=== PATIENT | female | born 1930 | race Caucasian/White ===

== ENCOUNTER → 2016-09-03 | Outpatient (CLI) | payer OTHER ==
--- NOTE | 2016-09-03 17:16 | US ---
Ultrasound and Venous Duplex Doppler Study of Left Lower Extremity Clinical History: 85-year-old female with left leg swelling and an elevated D-dimer. Rule out DVT. Th e patient has a prior history of breast cancer, and has also had prior left leg varicose vein sclerot herapy and vein stripping. Technique: A high frequency transducer was used for imaging and Doppler study of the veins of the le ft lower extremity. Pulsed Doppler and color Doppler were utilized, along with various maneuvers to assess flow in the veins. Cursory evaluation of the contralateral common femoral vein was obtained f or comparison purposes. Comparison Study: Left leg venous Doppler ultrasound, dated November 05, 2011 which was negative. Findings: With the exception of deep venous thrombosis involving the mid-calf portions of the peronea l veins, the remaining deep veins of the left lower extremity are normally compressible between the g roin and the upper calf, and have normal Doppler waveforms, with no other sonographic evidence of arianna p venous thrombosis. The greater saphenous vein is surgically absent. There is patency of the visuali zed short saphenous vein. The popliteal fossa is unremarkable. Impression: Deep venous thrombosis involving segments of the mid-calf portions of the left peroneal v eins. Results were called to Dr. Jessica Landeros. A test result has been communicated to a licensed care provider and documented in the [facility] Result system on 09/03/2016 16:59, Message ID [id number].
== END ==
LOC: FIMAGING 15:55
PROVIDERS: ATTEND Internal Medicine Hematology & Oncology
DX: I82.4Z2 Acute embolism and thrombosis of unspecified deep veins of left distal lower extremity (principal); Z85.3 Personal history of malignant neoplasm of breast; R79.9 Abnormal finding of blood chemistry, unspecified; Z86.718 Personal history of other venous thrombosis and embolism
CPT/HCPCS: 82607-90; 85240-90; 85245-90; 85246-90; 86705-90

== ENCOUNTER → 2016-09-23 | Outpatient (CLI) | payer OTHER | LOC: BRMIMAGING 08:56 | PROVIDERS: ATTEND Internal Medicine Hematology & Oncology | DX: R63.8 Other symptoms and signs concerning food and fluid intake (principal) | CPT/HCPCS: 76700-PO ==

== ENCOUNTER → 2016-10-12 | Outpatient (CLI) | payer OTHER | LOC: CIMAGING 12:22 | PROVIDERS: ATTEND Internal Medicine Hematology & Oncology | DX: M12.872 Other specific arthropathies, not elsewhere classified, left ankle and foot (principal); M25.572 Pain in left ankle and joints of left foot; M79.89 Other specified soft tissue disorders | CPT/HCPCS: 73610-PO; 73630-PO ==

== ENCOUNTER → 2017-05-31 | Outpatient (CLI) | payer OTHER | LOC: BHFA 15:30 | PROVIDERS: ATTEND Internal Medicine Cardiovascular Disease | DX: R00.2 Palpitations (principal); I25.10 Atherosclerotic heart disease of native coronary artery without angina pectoris ==

== ENCOUNTER → 2017-08-26 | Outpatient (CLI) | payer OTHER | LOC: BHFA 08:30 | PROVIDERS: ATTEND Internal Medicine Cardiovascular Disease | DX: I25.10 Atherosclerotic heart disease of native coronary artery without angina pectoris (principal); R06.00 Dyspnea, unspecified; R74.8 Abnormal levels of other serum enzymes | CPT/HCPCS: 78452; 93017; 93306; A9500; J2785 ==

== ENCOUNTER 2017-09-28 10:56 | Outpatient (CLI) | payer OTHER ==
[2017-09-28] MEDS ORDERED: ACETAMINOPHEN 325 MG TAB PO ONE (11:45)
[2017-09-28] MEDS ORDERED: diphenhydrAMINE 25 MG CAP PO ONE (11:45)
== END 2017-09-28 15:00 | disposition home or self-care (01) ==
LOC: FOBOP 10:56
PROVIDERS: ATTEND Internal Medicine Hematology & Oncology
PROC: 30233N1 Transfusion of Nonautologous Red Blood Cells into Peripheral Vein, Percutaneous Approach (ICD-10-PCS; principal; 2017-09-28)
DX: D46.9 Myelodysplastic syndrome, unspecified (principal)
CPT/HCPCS: 36430; P9016

== ENCOUNTER → 2017-10-03 | Outpatient (CLI) | payer OTHER | LOC: CIMAGING 08:00 | PROVIDERS: ATTEND Internal Medicine Pulmonary Disease | DX: R91.1 Solitary pulmonary nodule (principal); J47.9 Bronchiectasis, uncomplicated; R92.8 Other abnormal and inconclusive findings on diagnostic imaging of breast | CPT/HCPCS: 71250-PO ==

== ENCOUNTER → 2018-03-16 | Outpatient (CLI) | payer OTHER | LOC: CIMAGING 07:10 | PROVIDERS: ATTEND Internal Medicine | DX: R11.0 Nausea (principal); R63.4 Abnormal weight loss | CPT/HCPCS: 76705-PO ==

== ENCOUNTER 2018-05-10 10:36 | Outpatient (CLI) | payer OTHER ==
[2018-05-10] MEDS ORDERED: diphenhydrAMINE 25 MG CAP PO ONE (12:30)
[2018-05-10] MEDS ORDERED: ACETAMINOPHEN 325 MG TAB PO ONE (12:30)
== END 2018-05-10 20:32 | disposition home or self-care (01) ==
LOC: FOBOP 10:36
PROVIDERS: ATTEND Internal Medicine Hematology & Oncology
PROC: 30233N1 Transfusion of Nonautologous Red Blood Cells into Peripheral Vein, Percutaneous Approach (ICD-10-PCS; principal; 2018-05-10)
DX: D46.9 Myelodysplastic syndrome, unspecified (principal)
CPT/HCPCS: 36430; P9016

== ENCOUNTER 2018-06-01 11:00 | Outpatient (CLI) | payer OTHER ==
[2018-06-01] MEDS ORDERED: ACETAMINOPHEN 325 MG TAB PO ONE (12:00)
[2018-06-01] MEDS ORDERED: FUROSEMIDE 20 MG/2 ML VIAL IV ONE (12:00)
[2018-06-01] MEDS ORDERED: diphenhydrAMINE 25 MG CAP PO ONE (12:00)
== END 2018-06-01 18:29 | disposition home or self-care (01) ==
LOC: FOBOP 11:00
PROVIDERS: ATTEND Internal Medicine Hematology & Oncology
PROC: 30233N1 Transfusion of Nonautologous Red Blood Cells into Peripheral Vein, Percutaneous Approach (ICD-10-PCS; principal; 2018-06-01)
DX: D46.9 Myelodysplastic syndrome, unspecified (principal); D72.819 Decreased white blood cell count, unspecified; J47.9 Bronchiectasis, uncomplicated; K76.0 Fatty (change of) liver, not elsewhere classified; I10 Essential (primary) hypertension; M10.9 Gout, unspecified; E03.9 Hypothyroidism, unspecified; I44.7 Left bundle-branch block, unspecified; M19.90 Unspecified osteoarthritis, unspecified site; I49.3 Ventricular premature depolarization; Z86.718 Personal history of other venous thrombosis and embolism
CPT/HCPCS: 36430; J1940; P9016

== ENCOUNTER 2018-06-15 08:26 | Inpatient (IN) | payer OTHER ==
[2018-06-15] MEDS ORDERED: diphenhydrAMINE 25 MG CAP PO ONE (08:45)
[2018-06-15] MEDS ORDERED: ACETAMINOPHEN 325 MG TAB PO ONE (08:45)
[2018-06-15] MEDS ORDERED: ALTEPLASE 2 MG VIAL IVP PRN (14:19)
[2018-06-15] MEDS ORDERED: ACETAMINOPHEN 325 MG TAB PO PRN (15:55)
[2018-06-15] MEDS ORDERED: diphenhydrAMINE 25 MG CAP PO PRN (15:55)
[2018-06-15] MEDS ORDERED: FUROSEMIDE 20 MG TAB PO PRN (17:18)
[2018-06-15] MEDS ORDERED: ALBUTEROL 3 ML DEYVIAL IH PRN (17:18)
--- NOTE | 2018-06-15 17:32 | PDGENHP ---
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 She was in the outpatient transfusion unit today for Hg 3.8 scheduled for 2 units rbcs, but they could not get iv access. She came to the hospital, had a PICC line placed, and is now in on observatoin status for the transfusions. No sob, chest pain or angina, DRAKE, stroke like sxs, lightheadedness, nausea or abd/gi sxs. No bleeding. She does have some fatigue. 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 I have reviewed the list and ordered appropriate medicines. PHYSICAL EXAMINATION: Vital Signs: Stable without fever Examination: General: alert, oriented, good mentation, relaxed Skin: warm, dry, notably pale, no rash or lesions and no signs of bleeding or bruising HEENT: normal Neck: no mass or jvd Resps: relaxed Lungs: clear breath sounds Heart: regular, no murmur Abdomen: soft, nondistended, nontender, +BS, no mass Upper Extremities: normal Lower Extremities: no edema, warm Neurologic: normal speech/language, normal inspector salvage, no focal weakness IV site: looks normal LABORATORY DATA: CBC done yesterday from the clinic had a hemoglobin 3.8, hematocrit 12, MCV 114 , normal platelets, neutropenia with 190 neutrophils 1780 white blood cells reticulocyte count absolute 0.03 (during the month of March through May she was running hemoglobins of 5-6 and getting transfusions for that.) Chemistry yesterday showed normal electrolytes and renal function, bilirubin 3.2 with normal transaminases and LDH ASSESSMENT: * severe anemia in a patient with transfusion-dependent myelodysplastic syndrome * neutropenia with 190 white blood cells without fever * chronic heart disease with coronary stenoses and mitral regurgitation, currently stable with no symptoms of heart failure or angina or arrhythmia * COPD chronic and stable without dyspnea PLANS: * PICC catheter has been placed and will plan on leaving that in place * Transfusion 2 units of red blood cells ordered by Dr. Landeros today * Pre treat with Tylenol Benadryl * Neutropenic precautions * Continue her usual home medicines * Should be able to discharge tonight after transfusions are completed if they are stable and without complication * She has an appointment in Hematology Clinic with Dr. Landeros tomorrow I have reviewed the patient's past medical records as part of this assessment, including past Clinic and Hospital medical records and recent laboratory data
--- NOTE | 2018-06-15 18:31 | PDDCSUM ---
Discharge Summary Discharge Summary: DISCHARGE DIAGNOSES: * severe anemia * transfusion-dependent myelodysplastic syndrome PROCEDURES: Transfusion of 2 units packed red blood cells Placement of PICC catheter HOSPITAL COURSE SUMMARY: This patient who has transfusion-dependent myelodysplastic syndrome had blood tests yesterday showing hemoglobin 3.8. She having minimal symptomatology other than fatigue. She comes in after the nurses at the outpatient transfusions and will unable to gain IV access. Here vital signs were stable and other than fatigue she was asymptomatic. We placed a PICC catheter which was without complication and is functioning well. Blood was sent for cross match and she has been transfused 2 units packed red blood cells. There are no significant complications although she had some minor symptoms during her 2nd unit of transfusion which led to a slowing the infusion rate down. There were no further issues with that unit of blood transfusion and overall she tolerated the transfusions well with no evidence of volume overload, fever, or other major issues. At this time the patient is is feeling better in terms of energy is up walking the hallway eating well. No evidence of any bleeding. No evidence of any other acute illnesses. Initially this patient was made inpatient due to feeling that she was extremely high risk with hemoglobin of 3 with high risk of complications and that we would want to observe her particularly when she started having some side effects at onset of the 2nd unit of blood transfusion. However the patient has recovered nicely and is notably better able to ambulate after the transfusion and we did not have to stop the 2nd unit. Therefore at this point she is recovered to stability quickly than expected and is felt ready for discharge. Has an appointment in hematology clinic today. PENDING TEST RESULTS: None MEDICATION CHANGES: None FOLLOW-UP PLAN: In clinic with Dr. Landeros later today
[2018-06-15] MEDS ORDERED: ONDANSETRON DISINTEGRATING 4 MG TAB PO PRN (21:05)
[2018-06-16] MEDS ORDERED: LEVOTHYROXINE 88 MCG TAB PO SCH (06:00)
[2018-06-16] MEDS ORDERED: Herbals/Supplements -Info Only PO SCH (09:00)
[2018-06-16] MEDS ORDERED: VERAPAMIL ER 120 MG TAB PO SCH (09:00)
[2018-06-16] MEDS ORDERED: OMEGA-3 FATTY ACIDS 1,000 MG CAP PO SCH (09:00)
--- NOTE | 2018-06-16 09:28 | PDIAF ---
- Diagnosis Diagnosis: Transfusion dependent anemia, and myelo dysplastic syndrome - Medication Management Discharge Medications: electronically signed and located in the Home Medication List. PICC Care - Routine: Yes (This is a new PICC line for this patient and is to remain in place for use for transfusions, education regarding PICC care) - Orders Services needed: Home Care, Registered Nurse Home Care Face to Face: I certify that this patient was under my care and that I had the required [id number] encounter meeting the encounter requirements on the discharge day. My findings support the fact that the patient is homebound as defined in Home Care Face to Face Continued: CMS Chapter 7 Medicare Benefits Manual 30.1.1 , The condition of the patient is such that there exists a normal inability to leave home and consequently, leaving home would require a considerable and taxing effort. Diet Recommendation: no restrictions on diet Diet Texture: Regular Texture Diet Additional Instructions: Follow-up in Hematology Clinic tomorrow morning as planned - Follow Up Care Current Providers and Referrals: Patient,NotPresent [Unknown] -
--- NOTE | 2018-06-16 09:38 | ASMTLACE ---
LACE Length of stay for Answers: Less than 1 day current admission Acuity / Level of Answers: Yes Care: Did the patient have an inpatient admission? Comorbidities - select Answers: Any tumor (including all that apply lymphoma or leukemia) Chronic pulmonary disease Coronary Artery Disease Other Notes: HTN; DVT # of Emergency department Answers: 0 visits in the last 6 months Score: 10 Date Signed: 06/16/2018 09:37 AM Electronically Signed By:Leonila Moss RN
--- NOTE | 2018-06-16 09:46 | ASMTCMCOM ---
CM Note CM Note Notes: Patient chart reviewed. PICC placed as she has poor access. 87 year old female with anemia and MDS admitted for PICC and transfusion. I spoke with her. She is alert and oriented. She is awaiting discharge as she has a 10 am appointment at [facility], I have placed home infusion referrals in [facility] for PICC care. Notified Jessica at [facility]. Will likely need Home Health RN to provide dressing changes per patient she goes to infusion center every other week. CM available should other needs arise. Plan: Dc to home with PICC, Home Infusion with nursing care to provide picc care, Date Signed: 06/16/2018 09:44 AM Electronically Signed By:Leonila Moss RN
[2018-06-16 09:49] VITALS: BP 136/71
--- NOTE | 2018-06-18 09:24 | ASDISCHSUM ---
Discharge Information Plan Status: Medically Cleared to Leave: Discharge Date:06/16/2018 10:46 AM D/C Disposition: ADT D/C Disposition:Home, Routine, Self-Care Projected Discharge Date:06/16/2018 11:00 AM Transportation at D/C: Discharge Delay Reason: Follow-Up Date:06/16/2018 11:00 AM Discharge Slot: Final Diagnosis: Placement Information Referral Type:*Home Health Care Services Referral ID:[id number] Provider Name:[facility] ([facility]) Address 1:[address] Address 2: City:[place] Selection [place]: State:[place] Referral Type:Home Infusion Referral ID:[id number] Provider Name:[facility] Address 1:[address] Address 2: City:[place] Selection Factors: State:[place] Patient Contact Information Contact Name:MARILIA Relationship: Address:[address] Work Phone: City:[place] Alternate Phone: [facility]/Zip Code:[place] [address] Email: Financial Information Financial Class:Medicare Primary Plan Desc:MEDICARE INPATIENT Primary Plan Number:[id number] Secondary Plan Desc:Xanofi Secondary Plan Number:[id number] Assessment Information LACE LACE Length of stay for Answers: Less than 1 day current admission Acuity / Level of Answers: Yes Care: Did the patient have an inpatient admission? Comorbidities - select Answers: Any tumor (including all that apply lymphoma or leukemia) Chronic pulmonary disease Coronary Artery Disease Other Notes: HTN; DVT # of Emergency department Answers: 0 visits in the last 6 months Score: 10 Date Signed: 06/16/2018 09:37 AM Electronically Signed By:Leonila Moss RN [facility] CM Progress Note CM Note CM Note Notes: Patient chart reviewed. PICC placed as she has poor access. 87 year old female with anemia and MDS admitted for PICC and transfusion. I spoke with her. She is alert and oriented. She is awaiting discharge as she has a 10 am appointment at [facility], I have placed home infusion referrals in [facility] for PICC care. Notified Jessica at [facility]. Will likely need Home Health RN to provide dressing changes per patient she goes to infusion center every other week. CM available should other needs arise. Plan: Dc to home with PICC, Home Infusion with nursing care to provide picc care, Date Signed: 06/16/2018 09:44 AM Electronically Signed By:Leonila Moss RN Intervention Information Intervention Type:*Incorrect Registration Date of Service:06/15/2018 02:17 PM Patient Type:Observation Staff Member:NICOLE Lopez, Beatriz Hours: Discipline: Severity: Comment:
== END 2018-06-16 10:46 | disposition home or self-care (01) | DRG 812 ==
LOC: F1NOP 08:26 → EDSTATUS 08:26 → F1N 12:49 → OBSVTOIN 13:31 → F1N 13:37
PROVIDERS: ADMIT Family Medicine; ATTEND Family Medicine
PROC: 02H633Z Insertion of Infusion Device into Right Atrium, Percutaneous Approach (ICD-10-PCS; principal; 2018-06-15)
PROC: 30233N1 Transfusion of Nonautologous Red Blood Cells into Peripheral Vein, Percutaneous Approach (ICD-10-PCS; 2018-06-15)
DX: D46.21 Refractory anemia with excess of blasts 1 (principal); R58 Hemorrhage, not elsewhere classified; J44.9 Chronic obstructive pulmonary disease, unspecified; I25.10 Atherosclerotic heart disease of native coronary artery without angina pectoris; I34.0 Nonrheumatic mitral (valve) insufficiency; M10.9 Gout, unspecified; I10 Essential (primary) hypertension; E03.9 Hypothyroidism, unspecified; Z86.718 Personal history of other venous thrombosis and embolism; Z85.3 Personal history of malignant neoplasm of breast
CPT/HCPCS: 99001-90; C1751; P9016

== ENCOUNTER → 2018-07-01 | Outpatient (CLI) | payer OTHER ==
[~2018-07-01] MED LIST: ACETAMINOPHEN 325 MG TAB PO ONE; diphenhydrAMINE 25 MG CAP PO ONE
[2018-07-01 19:49] VITALS: BP 149/64
== END | disposition home or self-care (01) ==
LOC: F1NOP 09:27
PROVIDERS: ATTEND Internal Medicine Hematology & Oncology
PROC: 30233N1 Transfusion of Nonautologous Red Blood Cells into Peripheral Vein, Percutaneous Approach (ICD-10-PCS; principal; 2018-07-01)
DX: D46.9 Myelodysplastic syndrome, unspecified (principal)
CPT/HCPCS: 36430; J1642; P9016

== ENCOUNTER 2018-07-12 09:43 | Outpatient (CLI) | payer OTHER ==
[2018-07-12] MEDS ORDERED: ACETAMINOPHEN 325 MG TAB PO ONE (10:30)
[2018-07-12] MEDS ORDERED: diphenhydrAMINE 25 MG CAP PO ONE (10:30)
[2018-07-12 14:52] VITALS: BP 137/71
== END 2018-07-12 15:00 | disposition home or self-care (01) ==
LOC: F1NOP 09:43
PROVIDERS: ATTEND Internal Medicine Hematology & Oncology
PROC: 30233N1 Transfusion of Nonautologous Red Blood Cells into Peripheral Vein, Percutaneous Approach (ICD-10-PCS; principal; 2018-07-12)
DX: D46.9 Myelodysplastic syndrome, unspecified (principal)
CPT/HCPCS: 36430; J1642; P9016

== ENCOUNTER 2018-08-04 09:18 | Outpatient (CLI) | payer OTHER ==
[2018-08-04] MEDS ORDERED: ACETAMINOPHEN 325 MG TAB PO ONE (09:45)
[2018-08-04] MEDS ORDERED: diphenhydrAMINE 25 MG CAP PO ONE (09:45)
[2018-08-04 17:21] VITALS: BP 124/55
== END 2018-08-04 17:20 | disposition home health service (06) ==
LOC: F1NOP 09:18
PROVIDERS: ATTEND Internal Medicine Hematology & Oncology
PROC: 30263N1 (ICD-10-PCS; principal; 2018-08-04)
DX: D46.9 Myelodysplastic syndrome, unspecified (principal)
CPT/HCPCS: P9016 ×4

== ENCOUNTER 2018-08-05 11:30 | Emergency (ER) | payer OTHER ==
[2018-08-05] MEDS ORDERED: NS 500 ML IV ONE (13:09)
--- NOTE | 2018-08-05 13:12 | EDPHY ---
H & P Time Seen by Provider: 08/05/18 12:15 HPI/ROS: CHIEF COMPLAINT: Rectal pain HISTORY OF PRESENT ILLNESS: The patient is an 87-year-old female with severe myelodysplastic syndrome followed by Dr. Rod who presents to the emergency department with rectal pain. Patient states that she was having significant constipation last week. She saw her physician who treated her with Colace as well as"smooth moved." After taking this medication she had a large bowel movement on . She states the constipated stool ripped her rectum. She reports stabbing rectal pain. It is worsening. Yesterday she reports having a fever. She came to the hospital to receive 2 units of blood and she was noted to have a temperature 101.2 degrees. She was sent to the emergency department for further evaluation. REVIEW OF SYSTEMS: 10 systems were reveiwed and are negative with the exception of the elements mentioned in the history of present illness. Past Medical/Surgical History: Includes myelodysplastic disorder, ovarian cyst, cardiac arrest, breast cancer, bronchiectasis Past surgical history: Includes Hysterectomy, lumpectomy, port Social history: Patient is . She does not smoke Smoking Status: Never smoked Physical Exam: 36.9, 141/53, 97, 18, 96% on room air GENERAL: No acute distress, alert. HEENT: Eyes normal to inspection, normal pharynx, no signs of dehydration. NECK: Normal, supple. RESPIRATORY: Clear to auscultation bilaterally, no rales, rhonchi or wheezing. CVS: Regular rate and rhythm, no rubs, murmurs, or gallops. ABDOMEN: Soft, mild suprapubic tenderness palpation, nondistended, no organomegaly. Rectal: Patient refuses rectal exam. BACK: Normal to inspection, no CVA tenderness. SKIN: Normal color, no rash, warm, dry. No pallor. EXTREMITIES: No pedal edema, no calf tenderness, no Homans sign or cords, no joint swelling. NEURO/PSYCH: Alert and oriented, normal mood and affect, normal motor sensory exam. Constitutional: Initial Vital Signs Temperature (C) 36.9 C 08/05/18 11:35 Heart Rate 97 08/05/18 11:35 Respiratory Rate 18 08/05/18 11:35 Blood Pressure 141/53 H 08/05/18 11:35 O2 Sat (%) 96 08/05/18 11:35 O2 Delivery Mode Room Air Allergies/Adverse Reactions: amoxicillin [From Augmentin] Allergy (Verified 09/28/17 11:26) clavulanic acid [From Augmentin] Allergy (Verified 09/28/17 11:26) doxycycline Allergy (Verified 03/28/18 11:32) epinephrine Allergy (Verified 09/28/17 11:27) esomeprazole [From Nexium] Allergy (Verified 09/28/17 11:27) Iodine and Iodide Containing Produc Allergy (Verified 09/28/17 11:27) rofecoxib [From Vioxx] Allergy (Verified 03/28/18 11:32) doxycycline Allergy (Uncoded 03/28/18 11:32) Home Medications: Medication Instructions Recorded Acetaminophen [Tylenol 325mg (*)] 325 mg PO DAILY PRN 06/15/18 Albuterol [Proventil Neb] 3 ml IH QID PRN 06/15/18 Furosemide [Lasix 20 MG (*)] 20 mg PO DAILY PRN 06/15/18 Herbals/Supplements -Info Only 1 ea PO DAILY 06/15/18 Levothyroxine [Synthroid 88 mcg 88 mcg PO DAILY06 06/15/18 (*)] Bang[place]-3 Fatty Acids [Fish Oil 1000 1,000 mg PO DAILY 06/15/18 mg (*)] Verapamil ER [Calan SR/ER 120MG 120 mg PO DAILY 06/15/18 (*)] Ciprofloxacin [Cipro] 500 mg PO BID #14 tab 08/05/18 Docusate Sodium [Colace 100 MG (*)] 100 mg PO BID PRN 7 Days cap 08/05/18 Venclexta 08/05/18 metroNIDAZOLE [Flagyl 500 mg (*)] 500 mg PO BID 7 Days tab 08/05/18 Medical Decision Making - Diagnostics Imaging Results: Imaging Impressions Pelvis CT 08/05/18 13:09 IMPRESSION: 1. Limited study with nonspecific soft tissue fullness in the perineum and perianal region which is incompletely characterized without IV contrast. Differential considerations include altered anatomy such as rectal prolapse/ intussusception or perirectal phlegmon without loculated fluid to suggest abscess. Rectal carcinoma cannot be radiographically excluded. Ultrasound or MRI of the pelvis may be useful for further evaluation as clinically warranted. 2. 1.0 cm sclerotic lesion in the left ischium may represent enostosis, however sclerotic osseous metastasis cannot be excluded with the patient with breast cancer. Correlation with prior imaging is recommended. No evidence of pelvic fracture. Dr. Gillespie was notified of these findings by telephone at 2:45 PM on 08/05/2018 ED Course/Re-evaluation: In the emergency department I discussed the case with Dr. Rod. He states the patient did not want to come to the emergency department because she did not want physical exam. He recommended imaging. I discussed this with the patient. I reviewed her laboratory studies from yesterday. Her white count was low at 0.72. The patient's ANC was 0.14. Patient's chemistry panel was unremarkable except for slightly low sodium 133. Patient states she has an allergy to contrast dye. This causes a significant reaction. She does not want contrast. CT without contrast as well as laboratory studies were ordered. Due the patient's temperature yesterday and leukopenia blood cultures and lactic acid were obtained. The patient's white count is 1.18. Patient's hematocrit is 24. Of note, the patient states she was transfused yesterday. Patient's INR is 1.4. The patient 's lactic acid is 0.7. Chemistry is notable for low sodium 134. UA is negative. Flu swab is negative. Awaiting CT. On recheck the patient was stable. CT: Please refer the dictated report. There is some fullness in the rectal area but no fluid collection or large mass. I discussed the result with the patient. I answered all her questions. Patient was given a prescription of Colace to soften her stool. Patient will take a Sitz bath multiple times daily. She was given Percocet for pain. Because of the fullness surrounding the rectum and the pain and the fact that the CT scan did not have IV contrast, the patient was started on antibiotics. The patient was given ciprofloxacin and Flagyl. The 1st dose was given in the emergency department. Patient was given warnings prior to leaving. She will return with worsening symptoms. Differential Diagnosis: My differential includes but is not limited to rectal abscess, rectal fissure, external hemorrhoid, thrombosed hemorrhoid, mass, malignancy, perforation, bacteremia, sepsis - Data Points Laboratory Results: Laboratory Results 08/05/18 13:25 08/05/18 13:25 01/12/1708/05/18 08/05/18 13:25 13:25 13:25 WBC RBC Hgb Hct MCV MCH MCHC RDW Plt Count MPV Neut % (Auto) Lymph % (Auto) [place] % (Auto) Eos % (Auto) Baso % (Auto) Nucleat RBC Rel Count Absolute Neuts (auto) Absolute Lymphs (auto) Absolute Monos (auto) Absolute Eos (auto) Absolute Basos (auto) Absolute Nucleated RBC Immature Gran % Seg Neutrophils % Band Neutrophils % Lymphocytes % Monocytes % Eosinophils % Basophils % Metamyelocytes % Myelocytes % Promyelocytes % Blast Cells % Immature Gran # Absolute Seg Neuts Absolute Band Neuts Absolute Lymphocytes Absolute Monocytes Absolute Eosinophils Absolute Basophils Absolute Metamyelocyte Absolute Myelocytes Absolute Promyelocytes Absolute Plasma Cells Atypical Lymphocytes Absolute Blast Cells Plasma Cells % Smudge Cells Platelet Estimate Large Platelets Giant Platelets PT 17.3 SEC H SEC (12.0-15.0) INR 1.40 H (0.83-1.16) APTT 35.3 SEC SEC (23.0-38.0) VBG Lactic Acid Sodium 134 mEq/L L mEq/L (135-145) Potassium 4.2 mEq/L mEq/L (3.5-5.2) Chloride 104 mEq/L mEq/L (97-110) Carbon Dioxide 24 mEq/l mEq/l (22-31) Anion Gap 6 mEq/L mEq/L (6-14) BUN 17 mg/dL mg/dL (7-23) Creatinine 0.6 mg/dL mg/dL (0.6-1.0) Estimated GFR > 60 Glucose 86 mg/dL mg/dL (70-100) Calcium 8.0 mg/dL L mg/dL (8.5-10.4) Urine Color Urine Appearance Urine pH Ur Specific [place] Urine Protein Urine Ketones Urine Blood Urine Nitrate Urine Bilirubin Urine Urobilinogen Ur Leukocyte Esterase Urine Glucose Nasal Influenza A PCR NEGATIVE FOR FLU A (NEGATIVE) Nasal Influenza B PCR NEGATIVE FOR FLU B (NEGATIVE) 08/05/18 08/05/18 08/05/18 13:25 13:20 12:20 WBC 1.18 10^3/uL L 10^3/uL (3.80-9.50) RBC 2.61 10^6/uL L 10^6/uL (4.18-5.33) Hgb 8.1 g/dL L g/dL (12.6-16.3) Hct 24.0 % L % (38.0-47.0) MCV 92.0 fL fL (81.5-99.8) MCH 31.0 pg pg (27.9-34.1) MCHC 33.8 g/dL g/dL (32.4-36.7) RDW 23.2 % H % (11.5-15.2) Plt Count 707 10^3/uL H 10^3/uL (150-400) MPV 11.3 fL fL (8.7-11.7) Neut % (Auto) 11.0 % L % (39.3-74.2) Lymph % (Auto) 83.1 % H % (15.0-45.0) [place] % (Auto) 3.4 % L % (4.5-13.0) Eos % (Auto) 0.8 % % (0.6-7.6) Baso % (Auto) 0.0 % L % (0.3-1.7) Nucleat RBC Rel Count 0.0 % % (0.0-0.2) Absolute Neuts (auto) 0.13 10^3/uL L 10^3/uL (1.70-6.50) Absolute Lymphs (auto) 0.98 10^3/uL L 10^3/uL (1.00-3.00) Absolute Monos (auto) 0.04 10^3/uL L 10^3/uL (0.30-0.80) Absolute Eos (auto) 0.01 10^3/uL L 10^3/uL (0.03-0.40) Absolute Basos (auto) 0.00 10^3/uL L 10^3/uL (0.02-0.10) Absolute Nucleated RBC 0.00 10^3/uL 10^3/uL (0-0.01) Immature Gran % 1.7 % H % (0.0-1.1) Seg Neutrophils % 11.0 % % Band Neutrophils % 1.0 % % Lymphocytes % 87.0 % % Monocytes % 1.0 % % Eosinophils % 0.0 % % Basophils % 0.0 % % Metamyelocytes % 0.0 % % Myelocytes % 0.0 % % Promyelocytes % 0.0 % % Blast Cells % 0.0 % % Immature Gran # 0.02 10^3/uL 10^3/uL (0.00-0.10) Absolute Seg Neuts 0.13 10^3/uL L 10^3/uL (1.70-6.50) Absolute Band Neuts 0.01 10^3/uL 10^3/uL (0.00-0.70) Absolute Lymphocytes 1.03 10^3/uL 10^3/uL (1.00-3.00) Absolute Monocytes 0.01 10^3/uL L 10^3/uL (0.30-0.80) Absolute Eosinophils 0.00 10^3/uL L 10^3/uL (0.03-0.40) Absolute Basophils 0.00 10^3/uL L 10^3/uL (0.02-0.10) Absolute Metamyelocyte 0.00 10^3/mL 10^3/mL (0.00-0.00) Absolute Myelocytes 0.00 10^3/mL 10^3/mL (0.00-0.00) Absolute Promyelocytes 0.00 10^3/uL 10^3/uL (0.00-0.00) Absolute Plasma Cells 0.00 10^3/uL 10^3/uL (0.00-0.00) Atypical Lymphocytes 1+ H Absolute Blast Cells 0.00 10^3/uL 10^3/uL (0.00-0.00) Plasma Cells % 0.0 % % Smudge Cells 1+ H Platelet Estimate INCREASED H (ADEQ) Large Platelets PRESENT H Giant Platelets PRESENT H PT INR APTT VBG Lactic Acid 0.7 mmol/L mmol/L (0.7-2.1) Sodium Potassium Chloride Carbon Dioxide Anion Gap BUN Creatinine Estimated GFR Glucose Calcium Urine Color YELLOW Urine Appearance CLEAR Urine pH 5.0 (5.0-7.5) Ur Specific [place] 1.009 (1.002-1.030) Urine Protein NEGATIVE (NEGATIVE) Urine Ketones NEGATIVE (NEGATIVE) Urine Blood NEGATIVE (NEGATIVE) Urine Nitrate NEGATIVE (NEGATIVE) Urine Bilirubin NEGATIVE (NEGATIVE) Urine Urobilinogen 2.0 EU H EU (0.2-1.0) Ur Leukocyte Esterase NEGATIVE (NEGATIVE) Urine Glucose NEGATIVE (NEGATIVE) Nasal Influenza A PCR Nasal Influenza B PCR Medications Given: Discontinued Medications Sodium Chloride (Ns) 500 mls @ 0 mls/hr IV EDNOW ONE; Wide Open PRN Reason: Protocol Stop: 08/05/18 13:10 Last Admin: 08/05/18 13:48 Dose: 500 mls Departure - Departure Disposition: Home, Routine, Self-Care Clinical Impression: Rectal pain Condition: Good Instructions: Rectal Pain (ED) Additional Instructions: Return with increasing pain, fever, bloody stools or any other concerns. Take Colace to soften your stool. Use Metamucil. You have been given Percocet for pain. Take your entire course of ciprofloxacin and Flagyl. Referrals: Marcia Hanna MD [Primary Care Provider] - As per Instructions Jamie Rod MD [Medical Doctor] - 2-3 days without fail Prescriptions: Ciprofloxacin [Cipro] 500 mg PO BID #14 tab Docusate Sodium [Colace 100 MG (*)] 100 mg PO BID PRN 7 Days cap PRN Reason: As needed as a stool softner metroNIDAZOLE [Flagyl 500 mg (*)] 500 mg PO BID 7 Days tab
[2018-08-05 13:40] LABS: PLATELET COUNT 707 10^3/uL (150-400)
[2018-08-05 13:48] LABS: INR 1.4 (0.83-1.16); PROTIME(PATIENT) 17.3 SEC (12.0-15.0)
[2018-08-05 14:56] VITALS: BP 139/58
[2018-08-05] MEDS ORDERED: metroNIDAZOLE 500 MG TAB PO ONE (15:07)
[2018-08-05] MEDS ORDERED: CIPROFLOXACIN 500 MG TAB PO ONE (15:07)
== END 2018-08-05 15:58 | disposition home or self-care (01) ==
DX: K62.89 Other specified diseases of anus and rectum (principal); D46.9 Myelodysplastic syndrome, unspecified; E86.9 Volume depletion, unspecified

== ENCOUNTER → 2018-09-08 | Outpatient (CLI) | payer OTHER | LOC: BHCLAF 13:15 | PROVIDERS: ATTEND Internal Medicine Cardiovascular Disease | DX: I25.10 Atherosclerotic heart disease of native coronary artery without angina pectoris (principal); I34.0 Nonrheumatic mitral (valve) insufficiency | CPT/HCPCS: 93306-PO ==

== ENCOUNTER → 2018-10-10 | Outpatient (CLI) | payer OTHER | LOC: FOBOP 09:46 | PROVIDERS: ATTEND Internal Medicine Hematology & Oncology | PROC: 30233N1 Transfusion of Nonautologous Red Blood Cells into Peripheral Vein, Percutaneous Approach (ICD-10-PCS; principal; 2018-10-10) | DX: D46.9 Myelodysplastic syndrome, unspecified (principal); R53.83 Other fatigue; J47.9 Bronchiectasis, uncomplicated; I10 Essential (primary) hypertension; E03.9 Hypothyroidism, unspecified; I44.7 Left bundle-branch block, unspecified; M19.90 Unspecified osteoarthritis, unspecified site; I49.3 Ventricular premature depolarization; M10.9 Gout, unspecified; D64.9 Anemia, unspecified; K76.0 Fatty (change of) liver, not elsewhere classified; R32 Unspecified urinary incontinence; K59.00 Constipation, unspecified; K64.9 Unspecified hemorrhoids; Z86.718 Personal history of other venous thrombosis and embolism | CPT/HCPCS: 36430; P9016 ==

== ENCOUNTER → 2018-11-07 | Outpatient (CLI) | payer OTHER | LOC: FOBOP 09:27 | PROVIDERS: ATTEND Internal Medicine Hematology & Oncology | DX: D46.9 Myelodysplastic syndrome, unspecified (principal) | CPT/HCPCS: 36430; P9016 ==

== ENCOUNTER 2018-11-17 15:12 | Outpatient (CLI) | payer OTHER ==
[2018-11-17] MEDS ORDERED: diphenhydrAMINE 25 MG CAP PO ONE (15:30)
[2018-11-17] MEDS ORDERED: ACETAMINOPHEN 325 MG TAB PO ONE (15:30)
== END 2018-11-17 15:40 | disposition home or self-care (01) ==
LOC: FOBOP 15:12
PROVIDERS: ATTEND Internal Medicine Hematology & Oncology
DX: D46.9 Myelodysplastic syndrome, unspecified (principal)
CPT/HCPCS: 86905-90; 99001-90; P9016

== ENCOUNTER 2018-11-18 08:37 | Outpatient (CLI) | payer OTHER ==
[2018-11-18] MEDS ORDERED: diphenhydrAMINE 25 MG CAP PO ONE (09:00)
[2018-11-18] MEDS ORDERED: ACETAMINOPHEN 325 MG TAB PO ONE (09:00)
== END 2018-11-18 15:20 | disposition home or self-care (01) ==
LOC: FOBOP 08:37
PROVIDERS: ATTEND Internal Medicine Hematology & Oncology
PROC: 30233N1 Transfusion of Nonautologous Red Blood Cells into Peripheral Vein, Percutaneous Approach (ICD-10-PCS; principal; 2018-11-18)
DX: D46.9 Myelodysplastic syndrome, unspecified (principal)
CPT/HCPCS: 36430; P9016

== ENCOUNTER 2018-12-11 06:59 | Inpatient (IN) | payer OTHER ==
--- NOTE | 2018-12-11 07:17 | EDPHY ---
H & P Stated Complaint: CA Pt c/o fever/chills/diaphoresis x2wks. On Lequin. Time Seen by Provider: 12/11/18 07:13 HPI/ROS: CHIEF COMPLAINT: Weakness, subjective fever, chills and diaphoresis HISTORY OF PRESENT ILLNESS: The patient has a history of MDS currently receiving oral chemotherapy and presents the emergency department with 2 weeks of progressive weakness, chills, subjective fever and diaphoresis. The patient was started on oral Levaquin 3 days ago by her oncologist. The patient denies a significant cough. She denies dysuria. She denies diarrhea. The patient does report fairly profound fatigue in the setting of decreased oral intake. The patient has been having nausea and uncontrolled retching. She has occasional vomiting. REVIEW OF SYSTEMS: A comprehensive 10 point review of systems is otherwise negative aside from elements mentioned in the history of present illness. 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 bronchietasis, myelo dysplasia syndrome - Social History Smoking Status: Never smoked - Physical Exam Exam: General Appearance: Elderly female, no acute distress Eyes: Pupils equal and round no pallor or injection ENT, Mouth: Mucous membranes moist Respiratory: There are no retractions, lungs are clear to auscultation Cardiovascular: Regular rate and rhythm Gastrointestinal: Abdomen is soft and nontender, no masses, bowel sounds normal Neurological: 5/5 strength all 4 extremities Skin: Warm and dry, no rashes Musculoskeletal: Neck is supple nontender Extremities: symmetrical, full range of motion Constitutional: Initial Vital Signs Temperature (C) 37.6 C 12/11/18 07:07 Heart Rate 102 H 12/11/18 07:07 Respiratory Rate 18 12/11/18 07:07 Blood Pressure 129/78 H 12/11/18 07:07 O2 Sat (%) 93 12/11/18 07:07 O2 Delivery Mode Room Air Allergies/Adverse Reactions: amoxicillin [From Augmentin] Allergy (Verified 12/11/18 07:07) clavulanic acid [From Augmentin] Allergy (Verified 12/11/18 07:07) doxycycline Allergy (Verified 12/11/18 07:07) epinephrine Allergy (Verified 12/11/18 07:07) esomeprazole [From Nexium] Allergy (Verified 12/11/18 07:07) Iodine and Iodide Containing Produc Allergy (Verified 12/11/18 07:07) rofecoxib [From Vioxx] Allergy (Verified 12/11/18 07:07) doxycycline Allergy (Uncoded 03/28/18 11:32) Home Medications: Medication Instructions Recorded Acetaminophen [Tylenol 325mg (*)] 325 mg PO DAILY PRN 06/15/18 Albuterol [Proventil Neb] 3 ml IH QID PRN 06/15/18 Furosemide [Lasix 20 MG (*)] 20 mg PO DAILY PRN 06/15/18 Herbals/Supplements -Info Only 1 ea PO DAILY 06/15/18 Levothyroxine [Synthroid 88 mcg 88 mcg PO DAILY06 06/15/18 (*)] [place]-3 Fatty Acids [Fish Oil 1000 1,000 mg PO DAILY 06/15/18 mg (*)] Verapamil ER [Calan SR/ER 120MG 120 mg PO DAILY 06/15/18 (*)] Ciprofloxacin [Cipro] 500 mg PO BID #14 tab 08/05/18 Docusate Sodium [Colace 100 MG (*)] 100 mg PO BID PRN 7 Days cap 08/05/18 Venclexta 08/05/18 metroNIDAZOLE [Flagyl 500 mg (*)] 500 mg PO BID 7 Days tab 08/05/18 oxyCODONE/APAP 5/325 [Percocet 1 - 2 tab PO Q4PRN PRN #11 tab 08/05/18 5/325 (*)] Medical Decision Making ED Course/Re-evaluation: Patient presents the emergency department with subjective fever and chills. She is noted to be afebrile here. She has been on Levaquin for the past several days. She is noted to be pancytopenic and anemic. She clinically appears to be dehydrated. The patient will require admission to the hospital for transfusion and fluid resuscitation. Blood cultures have been obtained in the emergency department. In the absence of fever, IV antibiotics will be withheld at this point time. Consultation was made with the hospitalist service. Patient has no evidence of urinary tract infection in the emergency department. The patient's initial lactic acid is reassuring. Differential Diagnosis: Differential diagnosis considered includes neutropenic fever, sepsis, metabolic derangement, urinary tract infection, pneumonia - Data Points Laboratory Results: Laboratory Results 12/11/18 07:45 12/11/18 07:45 12/11/18 12/11/18 12/11/18 08:20 07:45 07:45 WBC 0.69 10^3/uL L* 10^3/uL (3.80-9.50) RBC 1.70 10^6/uL L 10^6/uL (4.18-5.33) Hgb 5.7 g/dL L* g/dL (12.6-16.3) Hct 17.0 % L* % (38.0-47.0) MCV 100.0 fL H fL (81.5-99.8) MCH 33.5 pg pg (27.9-34.1) MCHC 33.5 g/dL g/dL (32.4-36.7) RDW 18.3 % H % (11.5-15.2) Plt Count 42 10^3/uL L 10^3/uL (150-400) MPV 11.2 fL fL (8.7-11.7) Neut % (Auto) Pending Lymph % (Auto) Pending [place] % (Auto) Pending Eos % (Auto) Pending Baso % (Auto) Pending Nucleat RBC Rel Count Pending Absolute Neuts (auto) Pending Absolute Lymphs (auto) Pending Absolute Monos (auto) Pending Absolute Eos (auto) Pending Absolute Basos (auto) Pending Absolute Nucleated RBC Pending Immature Gran % Pending Immature Gran # Pending Platelet Estimate Pending Smear Review By Pending VBG Lactic Acid Sodium 133 mEq/L L mEq/L (135-145) Potassium 3.9 mEq/L mEq/L (3.5-5.2) Chloride 101 mEq/L mEq/L (97-110) Carbon Dioxide 24 mEq/l mEq/l (22-31) Anion Gap 8 mEq/L mEq/L (6-14) BUN 13 mg/dL mg/dL (7-23) Creatinine 0.5 mg/dL L mg/dL (0.6-1.0) Estimated GFR > 60 Glucose 110 mg/dL H mg/dL (70-100) Calcium 8.3 mg/dL L mg/dL (8.5-10.4) Urine Color YELLOW Urine Appearance HAZY Urine pH 5.0 (5.0-7.5) Ur Specific [place] 1.018 (1.002-1.030) Urine Protein NEGATIVE (NEGATIVE) Urine Ketones NEGATIVE (NEGATIVE) Urine Blood NEGATIVE (NEGATIVE) Urine Nitrate NEGATIVE (NEGATIVE) Urine Bilirubin NEGATIVE (NEGATIVE) Urine Urobilinogen 2.0 EU H EU (0.2-1.0) Ur Leukocyte Esterase NEGATIVE (NEGATIVE) Urine Glucose NEGATIVE (NEGATIVE) 12/11/18 07:45 WBC RBC Hgb Hct MCV MCH MCHC RDW Plt Count MPV Neut % (Auto) Lymph % (Auto) [place] % (Auto) Eos % (Auto) Baso % (Auto) Nucleat RBC Rel Count Absolute Neuts (auto) Absolute Lymphs (auto) Absolute Monos (auto) Absolute Eos (auto) Absolute Basos (auto) Absolute Nucleated RBC Immature Gran % Immature Gran # Platelet Estimate Smear Review By VBG Lactic Acid 0.9 mmol/L mmol/L (0.7-2.1) Sodium Potassium Chloride Carbon Dioxide Anion Gap BUN Creatinine Estimated GFR Glucose Calcium Urine Color Urine Appearance Urine pH Ur Specific [place] Urine Protein Urine Ketones Urine Blood Urine Nitrate Urine Bilirubin Urine Urobilinogen Ur Leukocyte Esterase Urine Glucose Medications Given: Discontinued Medications Sodium Chloride (Ns) 1,000 mls @ 0 mls/hr IV EDNOW ONE; Wide Open PRN Reason: Protocol Stop: 12/11/18 07:26 Last Admin: 12/11/18 07:36 Dose: Not Given Sodium Chloride (Ns) 1,000 mls @ 0 mls/hr IV EDNOW ONE; Wide Open PRN Reason: Protocol Stop: 12/11/18 07:26 Last Admin: 12/11/18 07:36 Dose: Not Given Ondansetron HCl (Zofran) 4 mg IVP EDNOW ONE Stop: 12/11/18 07:31 Last Admin: 12/11/18 07:37 Dose: Not Given Departure - Departure Disposition: [facility] Acute Clinical Impression: Dehydration, Myelodysplastic syndrome, Neutropenia, Anemia Condition: Fair Referrals: Marcia Hanna MD [Primary Care Provider] - As per Instructions
[2018-12-11] MEDS ORDERED: NS 1,000 ML IV ONE ×2 (07:25)
[2018-12-11] MEDS ORDERED: ONDANSETRON 4 MG/2 ML VIAL IVP ONE (07:30)
[2018-12-11] MEDS ORDERED: ONDANSETRON 4 MG/2 ML VIAL ONE (07:30)
[2018-12-11 08:25] LABS: PLATELET COUNT 42 10^3/uL (150-400)
--- NOTE | 2018-12-11 09:15 | PDGENHP ---
History and Physical History and Physical: HISTORY: This patient with myelodysplastic syndrome and pancytopenia comes in with weakness and 2 weeks of fevers at home. She started off with prolific sweats and chills but no localizing symptoms 2 weeks ago. She denies cough or respiratory symptoms other than her chronic dyspnea, headache neck pain, oral pharyngeal symptoms, spine symptoms, abdominal discomfort or changes in bowel function, joint symptoms, urinary symptoms, or skin lesions. She has a PICC catheter and is not noticing any abnormalities round the PICC catheter. 3 days ago she was started on Levaquin in the outpatient setting so she has had 3 doses of that without any improvement. Her temperature this morning at home 100.5. As far as her myelodysplastic syndrome she is training with the [facility] and Aranesp. Her cell counts have all been quite low lately. She has required transfusion of red cells for hemoglobin of 6 twice in this past October. She is not having any bleeding that she notices. 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 I have reviewed the list and ordered appropriate medicines. PHYSICAL EXAMINATION: Vital Signs: Stable without fever in ER Examination: General: alert, oriented, good mentation, relaxed Skin: warm, dry, notably pale, no rash or lesions and no signs of bleeding or bruising HEENT: normal Neck: no mass or jvd Resps: relaxed Lungs: clear breath sounds Heart: regular, no murmur Abdomen: soft, nondistended, nontender, +BS, no mass Upper Extremities: normal Lower Extremities: no edema, warm Neurologic: normal speech/language, normal oiler bander, no focal weakness IV site: looks normal LABORATORY DATA: wbc 0.69, 220 pmn Hg 5.7 Plts 42 alk phos 202, otherwise metabolic and liver panels ok UA unremarkable ASSESSMENT: * Nausea, Vomiting, Dehydration * Neutropenic Fever - ? source * Dyspnea, chronic but likely at this time aggravated by her febrile illness and her severe anemia * Severe anemia from pancytopenia - transfusion is indicated today * Pancytopenia of MDS and its treatment * MDS on treatment with Venetoclax and Aranesp * Hx of Breast Cancer * Hx of DVT leg * Hx of COPD, Bronchiectasis, CAD, Mitral Regurg, Gout PLANS: * Admission to hospital * IV fluids * Follow Blood Culture Results closely - these may be affected by the Levaquin she has been taking * Infectious disease consultation * Will consider change antibiotics after review with ID * Transfusion 2 units of red blood cells today; follow red cells and platelets closely * I have reviewed the patient's past medical records as part of this assessment, including past Clinic and Hospital medical records and recent laboratory data
[2018-12-11] MEDS ORDERED: NS 1,000 ML IV SCH (09:30)
[2018-12-11] MEDS ORDERED: NS 2,000 ML IV ONE (09:32)
[2018-12-11] MEDS ORDERED: PROCHLORPERAZINE MALEATE 10 MG TAB PO PRN (11:58)
[2018-12-11] MEDS ORDERED: diphenhydrAMINE 25 MG CAP PO ONE (12:45)
[2018-12-11] MEDS ORDERED: ACETAMINOPHEN 500 MG TAB PO ONE (12:45)
[2018-12-11] MEDS: VANCOMYCIN 1.25 GM in NS 250 ML IV SCH (13:39)
--- NOTE | 2018-12-11 14:57 | GCON ---
[f rep st] CONSULTATION The patient is a very pleasant 88-year-old female who has a history of myelodysplastic syndrome, admi tted with pancytopenia and chills and fever. The patient was diagnosed in April of 2017 with hig h risk MDS with a blast count of 7%. FISH testing showed 11q-. She was initially maintained on darb epoetin, however, progressed and was started on azacitidine and venetoclax in July of 2018. She has since received 6 cycles of azacitidine, the most recent completed 12/01/2018. She has had fairly persistent pancytopenia and has required occasional red blood cell transfusions. Over the last 3 da ys and perhaps even longer, she has had weakness and fevers and chills. She has had a slight cough a ssociated with this. She was started on Levaquin about 3 days ago, but persisted with fevers and was admitted for further evaluation. Of note, in addition to the azacitidine, patient has been treated with a venetoclax but has had trouble tolerating that because of constipation. She has a past medica l history of MDS, past history of breast cancer. She tells me she was operated on in 2005. She has noted a mass in her left breast. She has a history of COPD, coronary artery disease, mitral regurgit ation, gout, past history of DVT of the leg, hypertension, hypothyroidism. FAMILY HISTORY: Significant for breast cancer and hypertension. REVIEW OF SYSTEMS: In addition to the above complaints is significant for some recent weight loss. 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 PHYSICAL EXAMINATION: GENERAL: She is a very alert, somewhat frail-appearing female. VITAL SIGNS: Blood pressure is 154/92, temp is 99.1, T-max was 99.7, heart rate is currently 87, room air sat 93% . HEENT: She is not icteric. NECK: I detect no cervical supraclavicular adenopathy. LUNGS: Show a few rhonchi. CARDIAC: Exam shows a fairly prominent holosystolic murmur heard best at the lower left sternal border. BREASTS: Exam does show a mass in the upper outer quadrant of the left breast measuring approximately 2 cm. It is firm and easily movable. ABDOMEN: Shows normal bowel sounds. Nontender without obvious organomegaly. EXTREMITIES: No obvious edema or petechiae. NEUROLOGIC: E xam is nonfocal. There is an intact PICC line in the right arm without evidence of obvious inflammat ion. LABORATORY: Current white count is 0.69, hemoglobin 5.7, hematocrit 17, platelets are 42,000. Alkal ine phosphatase is 202. Transaminases are normal. Sodium 133, potassium 3.9, BUN is 13, creatinine is 0.5. ASSESSMENT: Patient with MDS, on azacitidine and venetoclax. Admitted with fever. There is no obvi ous localizing source. She does have a PICC line and I think does have some mild pulmonary symptoms. PLAN: Plan at this time is to admit. ID consult will be obtained. She will be started on broad-spe ctrum antibiotics. We will probably hold off on colony-stimulating factor given her MDS and excess b lasts. We will transfuse 2 units of packed RBCs and will obtain a chest x-ray. I do have some anastacia rns regarding the mass in her left breast. I think there is some possibility this could be a maligna ncy. We will try to research her past history of breast cancer a bit more. It is conceivable that s omething such as an ultrasound of that area might be reasonable during this hospital stay, although i f this is breast cancer, treatment may be problematic given her other medical issues. Our service wi ll follow with you. /[id number]/MODL
[2018-12-11] MEDS: diphenhydrAMINE 25 MG CAP PO PRN (21:34)
[2018-12-11] MEDS: MELATONIN 3 MG TAB PO SCH (22:10)
[2018-12-11] MEDS: ACETAMINOPHEN 325 MG TAB PO PRN (23:19)
[2018-12-12] MEDS ORDERED: BISACODYL 10 MG SUPP PR PRN (04:58)
[2018-12-12] MEDS ORDERED: LACTULOSE 20 GM/30 ML UDCUP PO PRN (04:58)
[2018-12-12] MEDS ORDERED: POLYETHYLENE GLYCOL 3350 17 GM PKT PO PRN (04:58)
[2018-12-12] MEDS ORDERED: MAGNESIUM HYDROXIDE 30 ML UDCUP PO PRN (04:58)
[2018-12-12] MEDS: LEVOTHYROXINE 88 MCG TAB PO SCH (07:09)
[2018-12-12 08:33] LABS: PLATELET COUNT 40 10^3/uL (150-400)
--- NOTE | 2018-12-12 10:06 | ASMTCASEMG ---
Living Arrangements What is your living Answers: With Spouse arrangement? Who do you live with? Type Of Residence What kind of residence do Answers: House you live in? 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 Patient has myelodysplastic syndrome and pancytopenia and hx of breast cancer. Patient's PCP is Dr. Marcia Hanna. She lives in [place]. No therapies ordered at this time. D/C plan TBD. CM will follow. Date Signed: 12/12/2018 10:05 AM Electronically Signed By:Nelly Silva LCSW
[2018-12-12] MEDS: CHOLECALCIFEROL VIT D3 2,000 UNITS TAB/CAP PO SCH (10:46)
[2018-12-12] MEDS: SENNOSIDES/DOCUSATE SODIUM TAB PO SCH ×2 (10:47→22:21)
--- NOTE | 2018-12-12 11:17 | HOSPPROG ---
Hospitalist Progress Note Assessment/Plan: DIAGNOSES: * Nausea, Vomiting, Dehydration * Neutropenic Fever - ? source * Dyspnea, chronic but likely at this time aggravated by her febrile illness and her severe anemia * Severe anemia - 2 units red blood cells given 12/11 * Pancytopenia of MDS and its treatment -significant neutropenia persists * MDS on treatment with Venetoclax and Aranesp * Hx of Breast Cancer * new breast mass found on examination at this time, ultrasound pending * Hx of DVT leg * Hx of COPD, Bronchiectasis, CAD, Mitral Regurg, Gout Seen by me on hospitalist rounds and multidisciplinary rounds today I reviewed in detail with Dr. Gavi Suarez and Dr. 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: Exam: alert oriented skin warm dry color ok resps not labored lungs clear BSs heart regular abd soft nondistended nontender, bowel sounds present limbs warm, no edema iv site ok Imaging: I reviewed chest x-ray which shows her usual severe bronchiectasis right lower lobe and some mild fibrotic change related to that, nothing else acute Lab data: Metabolic panel is stable, glucose 147 White blood cell 620, neutrophils 350 new line hemoglobin up to 9.7 after transfusion Platelets stable 40,000 Microbiology: Blood cultures are all negative at this time Objective: Vital Signs Temp Pulse Resp BP Pulse Ox 37.4 C 100 16 130/70 H 92 12/12/18 07:41 12/12/18 07:41 12/12/18 07:41 12/12/18 07:41 12/12/18 07:41 Laboratory Results 12/12/18 06:30 12/12/18 06:30 12/11/18 12/12/18 12/13/18 06:59 06:59 06:59 Intake Total 2450 Output Total 350 100 Balance 2100 -100 - Time Spent With Patient Time Spent with Patient: greater than 35 minutes Time Spent with Patient: Greater than 35 minutes spent on this patients care, greater than 50% of time spent counseling, educating, and coordinating care regarding the above mentioned plan. ICD10 Worksheet Patient Problems: Problems Problem Status Onset Anemia Acute Dehydration Acute Myelodysplastic syndrome Acute Neutropenia Acute
--- NOTE | 2018-12-12 11:18 | HOSPPROG ---
Hospitalist Progress Note Assessment/Plan: DIAGNOSES: * Nausea, Vomiting, Dehydration * Neutropenic Fever - ? source * Dyspnea, chronic but likely at this time aggravated by her febrile illness and her severe anemia * Severe anemia - 2 units red blood cells given 12/11 * Pancytopenia of MDS and its treatment -significant neutropenia persists * MDS on treatment with Venetoclax and Aranesp * Hx of Breast Cancer * new breast mass found on examination at this time, ultrasound pending * Hx of DVT leg * Hx of COPD, Bronchiectasis, CAD, Mitral Regurg, Gout Seen by me on hospitalist rounds and multidisciplinary rounds today I reviewed in detail with Dr. Gavi Suarez and Dr. Marlow PLANS: * Continue current vancomycin * Follow cultures closely * Continue to follow clinical course for any signs of a source of fever * After long discussion with the patient along with Dr. Marlow at the bedside, the patient is now agreeable to CT scanning of chest and abdomen to look for infection source * Await breast ultrasound * Dr. Marlow and I engage the patient in further discussion around the course of her MDS and the lack of response to treatment. She understands that she is not getting better and has a high chance of progression of disease. He is okay with a palliative approach to care if that becomes the recommended course over time. Recommend she have further discussions with Dr. 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: Exam: alert oriented, looks uncomfortable skin warm dry color ok resps not labored lungs clear BSs heart regular abd soft nondistended nontender, bowel sounds present limbs warm, no edema I examined her back and sacral area and find no specific abnormalities there including no tenderness iv site ok Imaging: I reviewed chest x-ray which shows her usual severe bronchiectasis right lower lobe and some mild fibrotic change related to that, nothing else acute Lab data: Metabolic panel is stable, glucose 147 White blood cell 620, neutrophils 350 new line hemoglobin up to 9.7 after transfusion Platelets stable 40,000 Microbiology: Blood cultures are all negative at this time Objective: Vital Signs Temp Pulse Resp BP Pulse Ox 37.4 C 100 16 130/70 H 92 12/12/18 07:41 12/12/18 07:41 12/12/18 07:41 12/12/18 07:41 12/12/18 07:41 Laboratory Results 12/12/18 06:30 12/12/18 06:30 12/11/18 12/12/18 12/13/18 06:59 06:59 06:59 Intake Total 2450 Output Total 350 100 Balance 2100 -100 - Time Spent With Patient Time Spent with Patient: greater than 35 minutes Time Spent with Patient: Greater than 35 minutes spent on this patients care, greater than 50% of time spent counseling, educating, and coordinating care regarding the above mentioned plan. ICD10 Worksheet Patient Problems: Problems Problem Status Onset Anemia Acute Dehydration Acute Myelodysplastic syndrome Acute Neutropenia Acute
--- NOTE | 2018-12-12 11:32 | SOAPPROG ---
SOAP Progress Note Assessment/Plan: Assessment: 1. MDS, good response to txn 2.Fever Plan:Continue vanc, consider ct CAP today looking for source infection, prognosis uncertain 12/12/18 11:30 12/12/18 11:31 Subjective: feels poorly, night sweats Objective: Vital Signs Temp Pulse Resp BP Pulse Ox 99.3 F 100 16 130/70 H 92 12/12/18 07:41 12/12/18 07:41 12/12/18 07:41 12/12/18 07:41 12/12/18 07:41 Laboratory Results 12/12/18 06:30 12/12/18 06:30 12/11/18 12/12/18 12/13/18 05:59 05:59 05:59 Intake Total 2450 Output Total 350 100 Balance 2100 -100 Physical Exam - Physical Exam General Appearance: mild distress Respiratory: normal breath sounds Cardiac/Chest: regular rate, rhythm Abdomen: normal bowel sounds, non-tender ICD10 Worksheet Patient Problems: Problems Problem Status Onset Anemia Acute Dehydration Acute Myelodysplastic syndrome Acute Neutropenia Acute
[2018-12-12] MEDS: ONDANSETRON 4 MG/2 ML VIAL IVP PRN (11:41)
[2018-12-12] MEDS: VANCOMYCIN 1.25 GM in NS 250 ML IV SCH (16:35)
[2018-12-12] MEDS: CEFEPIME HCL 2 GM in NS 100 ML IV SCH (16:55)
[2018-12-12] MEDS: ACETAMINOPHEN 325 MG TAB PO PRN (17:10)
--- NOTE | 2018-12-12 17:51 | GCON ---
[f rep st] CONSULTATION INFECTIOUS DISEASE CONSULTATION REQUESTING PHYSICIAN: Dr. Sav Ny. REASON FOR CONSULTATION: Neutropenia, low-grade fever, diaphoresis. HPI: An 88-year-old woman with myelodysplastic syndrome with blasts, who is receiving azacitidine recently, last completion of 6 cycles on 12/01/2018, who describes approximately 2 weeks of subjective fever, chills, weakness and diaphoresis and night sweats. She describes sweating through her pajamas, having to change clothes. She also has had a dry nonproductive cough and shortness of breath, which she primarily relates to her severe fatigue. She has bilateral lower back pain and intermittent headache. No rash. No diarrhea. She has intermittent nausea that is particularly bad at the time of my visit, and rectal pain and constipation. No mouth pain. She denies sick contacts or contact with small children. No livestock exposure. Their only pet is a cat. On admission, patient was started on IV vancomycin for concern for possible line infection. The patient had a PICC line placed 06/2018. PAST MEDICAL HISTORY: Bronchiectasis, hypertension, hypothyroidism, osteoarthritis, left bundle branch block, history of DVT, gout, bladder incontinence, constipation, myelodysplastic disorder considered high risk with excess blasts, IPSS-R score high risk diagnosed 04/27/17, initially received darbepoetin, 1st dose 09/07/2018, and started on azacitidine on 07/03/2018; mitral regurgitation. PAST SURGICAL HISTORY: Breast biopsy, left breast; hysterectomy, ovarian cyst drainage. FAMILY HISTORY: Positive for breast cancer and hypertension. SOCIAL HISTORY: She has 4 children. 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 No alcohol. from [place] originally. MEDICATIONS: Vancomycin 1.25 g IV Q 24, SEP reviewed ALLERGIES: The patient describes multiple allergies including to epinephrine, Nexium, iodine, Vioxx. She is unable to provide detailed reasons for these allergies. She reports having Augmentin over 15 years ago and reports destruction of cartilage after taking 4 months. She recently received Levaquin 3 days, and by the 3rd day developed tendon discomfort primarily localized to her hands that resolved after discontinuation of the medicine. Doxycycline; GI upset. The patient desires these side effects to still be listed as allergies. REVIEW OF SYSTEMS: A complete 10-point review of systems was performed and is negative. Of note, patient often requires manual manipulation of her rectum to precipitate a bowel movement. PHYSICAL EXAM: VITAL SIGNS: Blood pressure 130/70, heart rate 75 to 100, T- max 37.6; T current 37.4. She is 60 kg. GENERAL: This is a woman lying in bed in mild distress due to nausea. HEENT: Her pupils are reactive bilaterally. Bilateral cataracts. Conjunctival injection. Oropharynx slightly dry. Fair dentition. No obvious dental caries or oral ulcerations or exudates. NECK: Supple. CARDIOVASCULAR: Regular rate and rhythm. Faint systolic murmur. CHEST: Clear to auscultation bilaterally. BREAST: Left breast with golf ball size palpable mass, no erythema or warmth. ABDOMEN: Soft , nontender. Some discomfort with suprapubic tenderness. No flank pain. No masses EXTREMITIES: The patient has 1 to 2+ lower extremity edema. No joint swelling. Right upper extremity PICC line C/D/I. No associated swelling. Insertion site without abnormalities. SKIN: No rash. NEUROLOGICAL: She was alert and oriented x4. Moving all 4 extremities equally. Refuses Rectal Exam LABORATORY: White count 0.62, hematocrit 28, platelets of 40, ANC 340. Creatinine 0.4, albumin 3, AST 26, ALT 45. Blood cultures drawn on admission , demonstrated no growth to date. IMAGING: Imaging was performed. Chest CT and abdominal pelvis CT were performed without contrast and personally reviewed by me with Radiology. The chest CT showed chronic cystic and varicoid bronchiectasis in the right lower lobe with minimal interstitial edema and trace right pleural effusion. CT scan showed a low perirectal inflammation with phlegmon and swelling. No clear fluid collection identified, but limited due to lack of contrast. She also had sigmoid diverticulosis without acute diverticulitis and cholelithiasis with no CT evidence of biliary obstruction or cholecystitis. No hydronephrosis was noted. Otherwise, normal tract. ASSESSMENT: 88-year-old woman with high-grade myelodysplastic disorder, on azacitidine, and as a result has chronic neutropenia. Blood cultures are negative after 24 hours. PICC line site without abnormality. CT scan was performed today in light of mild respiratory symptoms as well as nausea and rectal pain, and an inflammatory process was identified in the low perirectal area. Differential includes infection versus malignancy, but with current presentation with subjective fever and sweats, infection seems most likely. Barbi-rectal phlegmon "source" likely related to repeated self rectal stimulation to stimulate bowel movement in the setting of chemotherapy induced neutropenia. 1. Neutropenia. 2. Low grade fevers, sweats. 3. Perirectal phlegmon, suspect polymicrobial GI irving. 4. Left breast mass - appears non-inflammatory RECOMMENDATIONS: 1. Discontinue vancomycin with negative blood cultures at 48 hours and low likelihood of PICC line infection. 2. Start gram-negative coverage with cefepime 1 to 2gm q.8. In this instance, do not think we are obliged to high-dose cefepime as patient is not actively febrile while hospitalized. I have concerns as patient has been fairly intolerant to antibiotics in the past, that she may have higher side effects with high dose, but we will start with high dose and adjust as needed. Could consider adding anaerobic coverage, but will start with cefepime alone for now. 3. The patient refuses visual perirectal examination. We will continue to discuss with patient to completely exclude other superimposed processes such as HSV. 4. If symptoms do not improve may need further imaging. Discuss with radiology , could consider MRI but patient want to hold off on this right now. No acute surgical indication but will continue to assess need for surgical consult. 5. Multiple antibiotic intolerances, see details above. Patient unwilling to try these again Time is 70 minutes, greater than 50% of time spent with coordination of care with hospitalist and Radiology and Oncology and coordination of care as well as review of risk factors and antibiotic therapy with the patient. Thank you for this consultation. We will continue to see the patient on a daily basis /[id number]/MODL MTDD
[2018-12-12] MEDS: MELATONIN 3 MG TAB PO SCH (22:21)
[2018-12-13] MEDS: CEFEPIME HCL 2 GM in NS 100 ML IV SCH ×3 (01:11→17:10)
[2018-12-13] MEDS: LEVOTHYROXINE 88 MCG TAB PO SCH (05:04)
[2018-12-13 06:13] LABS: PLATELET COUNT 36 10^3/uL (150-400)
--- NOTE | 2018-12-13 10:31 | PDMN ---
Medical Necessity Medical necessity: Change to IP, as of 12/12/18, per & [facility] Medical Oncology; los >2 mn for ongoing management of neutropenic fever (source unknown ) with N/V/D, severe anemia & new breast mass found on exam (ultrasound pending) ; requiring further workup/monitoring & IV abx; hx myelodysplastic syndrome on chemo, breast cancer
--- NOTE | 2018-12-13 10:47 | SOAPPROG ---
SOAP Progress Note Assessment/Plan: Assessment: 1. MDS- CBC today showing slight downtrend of hemoglobin (8.4 down from 9.7 yesterday), platelets and Neutrophils stable. Due for Aranesp today, however not available while inpatient, will give Procrit instead, ordered. Plan for repeat CBC in am. 2.Fever- CT chest/abdomen/pelvis obtained without evidence of pneumonia but with evidence of perirectal phlegmon/edema without drainable abscess. This is likely the source of patient's fever. She was seen by ID and antibiotics changed from Vancomycin to Cefepime for Gram negative coverage. Patient appears to be improving both subjectively and objectively after this change in antibiotics and she remains afebrile. Will continue to follow. Plan:Continue Cefepime, Procrit ordered, check AM CBC 12/12/18 11:30 12/12/18 11:31 12/13/18 10:39 Subjective: Patient feeling improved today. Reports increased energy and able to get out of bed for first time today. Denies fevers/chills/night sweats. Requesting sitz bath. Anxious for discharge as she has trees to plant at home. Objective: Vital Signs Temp Pulse Resp BP Pulse Ox 97.9 F 87 16 130/55 H 90 L 12/13/18 07:25 12/13/18 07:25 12/13/18 07:25 12/13/18 07:25 12/13/18 07:25 Laboratory Results 12/13/18 05:21 12/13/18 05:21 12/12/18 12/13/18 12/14/18 05:59 05:59 05:59 Intake Total 550 Output Total 400 Balance 150 NAD, sitting on couch in room dressed Breathing non-labored Alert, oriented x 3 - Time Spent With Patient Time Spent With Patient: 25 ICD10 Worksheet Patient Problems: Problems Problem Status Onset Anemia Acute Dehydration Acute Myelodysplastic syndrome Acute Neutropenia Acute
[2018-12-13] MEDS: EPOETIN ALFA 10,000 UNIT/ML VIAL SC SCH (10:59)
[2018-12-13] MEDS: SENNOSIDES/DOCUSATE SODIUM TAB PO SCH ×2 (11:00→22:06)
[2018-12-13] MEDS: CHOLECALCIFEROL VIT D3 2,000 UNITS TAB/CAP PO SCH (11:00)
--- NOTE | 2018-12-13 12:24 | PCMIDPN ---
Assessment/Plan: # Low grade fever in the setting of neutropenia - currently attributing source to findings c/w Perirectal abscess: clinically improved with <24 h GNR coverage. Suspect chronic rectal manipulation to encourage BMs and underlying chronic chemo-induced neutropenia as contributing factor. Blood cx remain negative. --empiric cefepime, giving at high dose due to neutropenia --tentatively plan to step down to PO 3rd gen cephalosporin after 2-3 days improvement and repeat non-contrast CT at 10-14 days as outpatient, this was reviewed with patient --reviewed side effects of cefepime with patient --still refusing inspection of rectum. Also discussed limitations of non- contrast CT # Pancyctopenia due to chemo/MDS: ANC 290, no recovery of ANC in near future. Meds cefepime 2gm IV q8h, D#1, 12/12- current micro 12/11 blood cx (2) NGTD Care coordinated with Dr. Ny Subjective: no BM since yesterday 1 episode vomiting this AM feels like needs to be on clear liquid diet for a couple days rectal pain a bit better today but scarred it will resume after BM No rash, denies side effect to antibiotics no night sweats last night feels better today Objective: Vital Signs Temp Pulse Resp BP Pulse Ox 36.6 C 87 16 130/55 H 90 L 12/13/18 07:25 12/13/18 07:25 12/13/18 07:25 12/13/18 07:25 12/13/18 07:25 Laboratory Results 12/13/18 05:21 12/13/18 05:21 12/12/18 12/13/18 12/14/18 05:59 05:59 05:59 Intake Total 550 Output Total 400 Balance 150 - Physical Exam General Appearance: alert, no apparent distress EENT: pale conjunctiva, No scleral icterus, No thrush Respiratory: lungs clear, No accessory muscle use Cardiac/Chest: regular rate, rhythm Extremities: pedal edema (1+) Peripheral Pulses: 1+: dorsalis-pedis (R), dorsalis-pedis (L) Abdomen: normal bowel sounds, non-tender, soft Pelvic Exam: other (no supra pubic tenderness) Skin: pallor, No rash Neuro/Psych: alert, normal mood/affect, oriented x 3 - Line/s RUE PICC Lines: No drainage, No erythema - Time Spent With Patient Time Spent with Patient: greater than 35 minutes Time Spent with Patient: Greater than 35 minutes spent on this patients care, greater than 50% of time spent counseling, educating, and coordinating care regarding the above mentioned plan. ICD10 Worksheet Patient Problems: Problems Problem Status Onset Anemia Acute Dehydration Acute Myelodysplastic syndrome Acute Neutropenia Acute
--- NOTE | 2018-12-13 13:22 | ASMTCMCOM ---
CM Note CM Note Notes: CM met with pt in her room. Pt and Dr. Ny agree that she will need some HC when she discharges. Pt currently receives [facility] services for weekly PICC line dressing changes, by NICOLE Richardson with [facility]. She will also need help managing her meds, as well as OT services. CM spoke to Debra, and LM for [facility] at [facility] regarding OT services. Pt uses a walker due to bad knees. She lives at home with her , but he has recently had surgery and is too weak to help very much. Her daughter, Analisa Alejo, sometimes will take pt in her wheelchair for longer commutes. Pt states that she needs someone to clean her house. CM called her daughter Analisa Alejo ([phone]) with pt's permission and discussed. Analisa says they use [facility] already and doesn't need any other referrals. CM will continue to follow. CM D/C plan: Home with continued [facility] RN services, and added OT services Date Signed: 12/13/2018 01:21 PM Electronically Signed By:Leticia Calle
--- NOTE | 2018-12-13 16:46 | ASMTCMCOM ---
CM Note CM Note Notes: Pt states that she feels she may need caregivers when she returns home. CM provided her with a list of agencies to consider. Date Signed: 12/13/2018 04:45 PM Electronically Signed By:Leticia Calle
[2018-12-13] MEDS ORDERED: PROTOCOL POTASSIUM 1 DOSE MISC PRN (19:20)
--- NOTE | 2018-12-13 19:23 | HOSPPROG ---
Hospitalist Progress Note Assessment/Plan: DIAGNOSES: * Perirectal phlegmon, less likely abscess as cause of acute presentation -started on cefepime last evening with some improvement in symptoms so far overnight * Neutropenic Fever * Dyspnea, chronic but likely at this time aggravated by her febrile illness and her severe anemia * Severe anemia - 2 units red blood cells given 12/11 * Pancytopenia of MDS and its treatment -significant neutropenia persists * MDS on treatment with Venetoclax and Aranesp * Hx of Breast Cancer * new breast mass identified during this admission * Hx of DVT leg * Hx of COPD, Bronchiectasis, CAD, Mitral Regurg, Gout Seen by me on hospitalist rounds and multidisciplinary rounds today I reviewed in detail with Dr. Gavi Suarez and Dr. Marlow PLANS: * Continue cefepime * Follow cultures closely * Continue to follow clinical course for resolution of symptoms and fevers * Probable breast ultrasound once stabilized * Regarding the course of her MDS and the lack of response to treatment, she understands that she is not getting better and has a high chance of progression of disease. He is okay with a palliative approach to care if that becomes the recommended course over time. Recommend she have further discussions with Dr. Landeros over time SUBJECTIVE: Notably no malaise chills or sweats overnight and feeling better overall No acute pain no other acute symptoms, no nausea today OBJECTIVE Vitals reviewed: Afebrile with stable vitals Welt Rougher, my review: Exam: alert oriented, looks somewhat more comfortable and relaxed skin warm dry color ok resps not labored lungs clear BSs heart regular abd soft nondistended nontender, bowel sounds present limbs warm, no edema iv site ok Imaging: On My review of CT images of abdomen pelvis and chest the main finding is significant inflammation consistent with likely phlegmon in the perianal perirectal fat. There is not appear to be abscess though this is a noncontrast study do her to her severe reactions in the past and this may limit ability to see abscess Lab data: Pancytopenia persists numbers relatively stable Potassium low at 3.0 otherwise stable Chem panel Microbiology: Blood cultures are all negative at this time Objective: Vital Signs Temp Pulse Resp BP Pulse Ox 37.7 C 110 H 16 125/55 H 92 12/13/18 16:22 12/13/18 16:22 12/13/18 16:22 12/13/18 16:22 12/13/18 16:22 Laboratory Results 12/13/18 05:21 12/13/18 05:21 12/12/18 12/13/18 12/14/18 06:59 06:59 06:59 Intake Total 550 Output Total 400 Balance 150 - Time Spent With Patient Time Spent with Patient: greater than 35 minutes Time Spent with Patient: Greater than 35 minutes spent on this patients care, greater than 50% of time spent counseling, educating, and coordinating care regarding the above mentioned plan. ICD10 Worksheet Patient Problems: Problems Problem Status Onset Anemia Acute Dehydration Acute Myelodysplastic syndrome Acute Neutropenia Acute
[2018-12-13] MEDS ORDERED: POTASSIUM CL 10 MEQ TAB PO ONE (20:08)
[2018-12-13] MEDS: MELATONIN 3 MG TAB PO SCH (22:06)
[2018-12-14] MEDS: CEFEPIME HCL 2 GM in NS 100 ML IV SCH ×3 (01:11→16:16)
[2018-12-14 05:32] LABS: PLATELET COUNT 37 10^3/uL (150-400)
[2018-12-14] MEDS: LEVOTHYROXINE 88 MCG TAB PO SCH (05:52)
[2018-12-14] MEDS: CHOLECALCIFEROL VIT D3 2,000 UNITS TAB/CAP PO SCH (08:07)
[2018-12-14] MEDS: SENNOSIDES/DOCUSATE SODIUM TAB PO SCH ×2 (08:07→20:42)
--- NOTE | 2018-12-14 11:45 | SOAPPROG ---
SOAP Progress Note Assessment/Plan: Assessment: 1. MDS- CBC today showing slight downtrend of hemoglobin (8.4->7.5), however patient still feeling somewhat better today overall and no symptoms from her anemia, no indication for transfusion, plan for repeat CBC in AM. Received procrit yesterday, unlikey to see response yet. Repeat CBC in AM, will continue to follow 2.Fever- CT chest/abdomen/pelvis obtained showing perirectal phlegmon/edema, likely the source of patient's fever. Continued on Cefepime for Gram negative coverage per ID recs. Patient appears to be improving both subjectively and objectively after this change in antibiotics. Afebrile. Followed by ID. 3. Constipation- patient reports persistent constipation, last BM tuesday. Requesting magnesium oxide, reasonable to add this per patient request. Will continue to follow. Plan:Continue Cefepime, check AM CBC, add magnesium oxide 12/12/18 11:30 12/12/18 11:31 12/13/18 10:39 12/14/18 11:41 12/14/18 11:53 Subjective: Overall improved, increased energy. Feeling somewhat bloated from constipation, last BM tuesday. Denies abdominal pain, rectal pain, rectal bleeding. Denies fevers/chills/night sweats overnight. Objective: Vital Signs Temp Pulse Resp BP Pulse Ox 98.2 F 77 14 100/50 L 97 12/14/18 07:29 12/14/18 07:29 12/14/18 07:29 12/14/18 07:29 12/14/18 07:29 Laboratory Results 12/14/18 05:00 12/14/18 05:00 12/13/18 12/14/18 12/15/18 05:59 05:59 05:59 Intake Total 550 350 Output Total 400 350 Balance 150 0 NAD, Anicteric Breathing non-labored, Abdomen soft, NTTP, No guarding or rigidity external rectal exam showing external hemorrhoids, no rash, no area of fluctuance, NTTP, CLIVE deferred Alert, pleasant, oriented x 4 ICD10 Worksheet Patient Problems: Problems Problem Status Onset Anemia Acute Dehydration Acute Myelodysplastic syndrome Acute Neutropenia Acute
[2018-12-14] MEDS: ACETAMINOPHEN 325 MG TAB PO PRN (12:47)
--- NOTE | 2018-12-14 14:04 | PCMIDPN ---
Assessment/Plan: # Low grade fever in the setting of neutropenia. Tmax 37.7 Attributing source to findings c/w Perirectal abscess. Seems clinically improved, but difficult to assess. Suspect chronic rectal manipulation to encourage BMs and underlying chronic chemo-induced neutropenia as contributing factor. Blood cx remain negative. --empiric cefepime, giving at high dose due to neutropenia, but could probably reduce dose if needed --tentatively plan to step down to PO 3rd gen cephalosporin tomorrow, repeat non -contrast CT at 10-14 days as outpatient, this was re-reviewed with patient --still refusing inspection of rectum. --if not improving tomorrow, may need to consider repeat CT or MRI and/or consult surgery # Pancyctopenia due to chemo/MDS: ANC 260, no recovery of ANC in near future. # Intolerable side effects to Augmentin (?cartilage destruction), doxycycline ( GI), levofloxacin (tendon pain, just occurred prior to hospitalization) - she does not want to try these again Meds cefepime 2gm IV q8h, D#2, 12/12- current micro 12/11 blood cx (2) NGTD Care coordinated with Dr. Ny Subjective: Denies rectal pain No BM, still with constipation, concerned BM will be painful 1 episode of sweats Objective: Vital Signs Temp Pulse Resp BP Pulse Ox 37.6 C 84 16 100/55 L 99 12/14/18 12:17 12/14/18 12:17 12/14/18 12:17 12/14/18 12:17 12/14/18 12:17 Selected Entries 12/13/18 16:22 T MAX 37.7 C Laboratory Results 12/14/18 05:00 12/14/18 05:00 12/13/18 12/14/18 12/15/18 05:59 05:59 05:59 Intake Total 550 350 Output Total 400 350 Balance 150 0 - Physical Exam General Appearance: alert, no apparent distress EENT: pale conjunctiva, No scleral icterus, No thrush Respiratory: lungs clear, No accessory muscle use Neck: supple Cardiac/Chest: regular rate, rhythm Extremities: pedal edema (chronic) Abdomen: normal bowel sounds, non-tender, soft Skin: No rash Neuro/Psych: alert, normal mood/affect, oriented x 3 - Time Spent With Patient Time Spent with Patient: greater than 35 minutes Time Spent with Patient: Greater than 35 minutes spent on this patients care, greater than 50% of time spent counseling, educating, and coordinating care regarding the above mentioned plan. ICD10 Worksheet Patient Problems: Problems Problem Status Onset Anemia Acute Dehydration Acute Myelodysplastic syndrome Acute Neutropenia Acute
[2018-12-14] MEDS ORDERED: MAGNESIUM OXIDE 400 MG TAB PO ONE (16:07)
--- NOTE | 2018-12-14 16:47 | HOSPPROG ---
Hospitalist Progress Note Assessment/Plan: DIAGNOSES: * Perirectal phlegmon, less likely abscess, as cause of acute presentation -symptomatically some improvement with cefepime * Neutropenic Fever * Dyspnea, chronic mildly aggravated by her acute illness * Pancytopenia due to MDS and its treatment -significant neutropenia and anemia persist; no signs of bleeding * Severe anemia - 2 units red blood cells given 12/11 and hemoglobin continues to drop * MDS on treatment with Venetoclax and Aranesp * Hx of Breast Cancer * new breast mass identified during this admission * Hx of DVT leg * Hx of COPD, Bronchiectasis, CAD, Mitral Regurg, Gout Seen by me on hospitalist rounds and multidisciplinary rounds today I reviewed in detail with Dr. Gavi Suarez and Dr. Marlow The patient scenario is difficult in that she had minimal symptoms of her presenting infection in terms of localizing discomforts or inflammation likely due to her severe neutropenia which persists. This is not an area where antibiotics and white cells are able to go easily and so eradicating this infection could be difficult. If she does develop abscess, her low platelets and low white blood cell count make surgical approach fairly risky overall, and she is not likely to be very excited about surgery. PLANS: * Continue cefepime * Follow cultures closely * Continue to follow clinical course for resolution of symptoms and fevers * Eventual evaluation of breast mass per Oncology * Regarding the course of her MDS and the lack of response to treatment, she understands that she is not getting better and has a high chance of progression of disease. He is okay with a palliative approach to care if that becomes the recommended course over time. Recommend she have further discussions with Dr. Landeros over time SUBJECTIVE: Again overall feels better today but did have some chills and low-grade fever mid day Appetite a bit better OBJECTIVE Vitals reviewed: 24 Hr T-max 37.9 degrees yesterday, other vitals stable Exam: alert oriented, relaxed skin warm dry color ok resps not labored lungs clear BSs heart regular abd soft nondistended nontender, bowel sounds present limbs warm, no edema iv site ok Lab data: Pancytopenia persists , hemoglobin continues to fall 7.5 Potassium low at 3.0 otherwise stable Chem panel Microbiology: Blood cultures are all negative at this time Potassium better at 4 Objective: Vital Signs Temp Pulse Resp BP Pulse Ox 36.8 C 76 16 110/55 L 90 L 12/14/18 16:07 12/14/18 16:07 12/14/18 16:07 12/14/18 16:07 12/14/18 16:07 Laboratory Results 12/14/18 05:00 12/14/18 05:00 12/13/18 12/14/18 12/15/18 06:59 06:59 06:59 Intake Total 550 350 Output Total 400 350 Balance 150 0 - Time Spent With Patient Time Spent with Patient: greater than 35 minutes Time Spent with Patient: Greater than 35 minutes spent on this patients care, greater than 50% of time spent counseling, educating, and coordinating care regarding the above mentioned plan. ICD10 Worksheet Patient Problems: Problems Problem Status Onset Anemia Acute Dehydration Acute Myelodysplastic syndrome Acute Neutropenia Acute
[2018-12-14] MEDS ORDERED: POTASSIUM CL 10 MEQ TAB PO ONE (19:53)
[2018-12-14] MEDS: MELATONIN 3 MG TAB PO SCH (21:22)
[2018-12-15] MEDS: ONDANSETRON 4 MG/2 ML VIAL IVP PRN (00:01)
[2018-12-15] MEDS: CEFEPIME HCL 2 GM in NS 100 ML IV SCH ×2 (00:03→08:59)
[2018-12-15] MEDS: LEVOTHYROXINE 88 MCG TAB PO SCH (06:37)
[2018-12-15 06:55] LABS: PLATELET COUNT 55 10^3/uL (150-400)
--- NOTE | 2018-12-15 10:24 | PCMIDPN ---
Assessment/Plan: 1. Perirectal phlegmon in the setting of underlying MDS with chronic neutropenia : Unremarkable examination is reassuring. I do feel that it is fine to convert her to oral therapy today, as the patient would really like to go home. Will discontinue cefepime and start cefdinir 300 mg p.o. Q.12 hours to complete 10 days of therapy. If patient continues to be stable without fevers and normal physical exam, do not feel strongly that she needs another CT scan, per se. Talked to the patient at length about the importance of trying to have normal bowel movements, drinking plenty of fluid, and a high-fiber diet. The patient now has diarrhea in the setting of magnesium and senna, which we will discontinue. (Patient refuses this morning). Case discussed with pharmacy, and hospitalist. Over 25 min spent with this patient today. Subjective: Patient states that she has gone to the bathroom 3 times this morning, diarrhea , in the setting of receiving senna and oral magnesium. She denies any perianal pain, aching, or discomfort. No chills, cough, or other symptoms. Wants to go home. Spent quite some time today talking with the patient about the plan moving forward, and the importance of me examining her prior to converting to oral therapy. Patient is agreeable to a physical exam. Objective: Cefepime 2 g IV q.8 hours day 3 T-max 37.2 degrees Vital Signs Temp Pulse Resp BP Pulse Ox 36.4 C 81 16 110/60 96 12/15/18 07:50 12/15/18 07:50 12/15/18 07:50 12/15/18 07:50 12/15/18 07:50 Laboratory Results 12/15/18 06:20 12/15/18 06:20 12/14/18 12/15/18 12/16/18 05:59 05:59 05:59 Intake Total 350 600 Output Total 350 475 Balance 0 125 December 11 blood cultures x2 negative - Physical Exam General Appearance: alert, other (Looks tired) EENT: pharynx normal, No scleral icterus, No thrush Respiratory: crackles Cardiac/Chest: systolic murmur Extremities: other (PICC line right upper extremity looks fine) Abdomen: non-tender, soft Rectal: other (Perianal area looks fine with no swelling, tenderness, or changes in the color of her soft tissues. There are no hemorrhoids, skin tags, or other protrusions from the anus.) Skin: No rash Neuro/Psych: oriented x 3 ICD10 Worksheet Patient Problems: Problems Problem Status Onset Anemia Acute Dehydration Acute Myelodysplastic syndrome Acute Neutropenia Acute
--- NOTE | 2018-12-15 12:01 | ASMTCMCOM ---
CM Note CM Note Notes: In interdisciplinary rounds it was determined by hospitalist that pt would be D/C'd today. Pt has since requested to stay an additional day due to diarrhea and nausea. CM spoke to Yu Carrion at [facility] [phone] to advise pt may be D/C'd today but most likely tomorrow. Pt is current with [facility] for RN and PT services and has been approved for OT services as well when she goes home. Palliative Care met with pt today; pt declined palliative services. CM will continue to follow. CM D/C plan: Home with RN, PT, and OT services from [facility]. Date Signed: 12/15/2018 12:01 PM Electronically Signed By:Leticia Calle
--- NOTE | 2018-12-15 12:21 | SOAPPROG ---
SOAP Progress Note Assessment/Plan: Assessment: 1. MDS- CBC stable, no indication for transfusion. 2.Fever- CT chest/abdomen/pelvis obtained showing perirectal phlegmon/edema, likely the source of patient's fever. Continued on Cefepime for Gram negative coverage per ID recs. Subjectively feeling better and wants to d/c home, however today with fever of 101 while on cefepime. Pending ID recs. 3. Diarrhea- patient requested Magnesium yesterday for constipation, now with diarrhea, Magnesium discontinued. Plan:Continue Cefdinir, check AM CBC, 12/12/18 11:30 12/12/18 11:31 12/13/18 10:39 12/14/18 11:41 12/14/18 11:53 12/15/18 12:21 12/15/18 12:22 Subjective: With diarrhea after starting magnesium yesterday and feels somewhat weak, although would like to d/c home tomorrow. Denies fevers/chills/night sweats. Objective: Vital Signs Temp Pulse Resp BP Pulse Ox 101.1 F H 89 18 120/58 L 90 L 12/15/18 12:12 12/15/18 12:12 12/15/18 12:12 12/15/18 12:12 12/15/18 12:12 Laboratory Results 12/15/18 06:20 12/15/18 06:20 12/14/18 12/15/18 12/16/18 05:59 05:59 05:59 Intake Total 350 600 Output Total 350 475 Balance 0 125 NAD, Breathing non-labored, RRR, alert, oriented x 3 ICD10 Worksheet Patient Problems: Problems Problem Status Onset Anemia Acute Dehydration Acute Myelodysplastic syndrome Acute Neutropenia Acute
[2018-12-15] MEDS: ACETAMINOPHEN 325 MG TAB PO PRN (13:47)
[2018-12-15] MEDS: CEFDINIR 300 MG CAP PO SCH ×2 (15:02→23:47)
[2018-12-15] MEDS: CHOLECALCIFEROL VIT D3 2,000 UNITS TAB/CAP PO SCH (15:06)
--- NOTE | 2018-12-15 15:44 | HOSPPROG ---
Hospitalist Progress Note Assessment/Plan: DIAGNOSES: * Perirectal phlegmon, less likely abscess, as cause of acute presentation -symptomatically some improvement with cefepime * Neutropenic Fever * Dyspnea, chronic mildly aggravated by her acute illness * Pancytopenia due to MDS and its treatment -significant neutropenia and anemia persist; no signs of bleeding * Severe anemia - 2 units red blood cells given 12/11 and hemoglobin continues to drop * MDS on treatment with Venetoclax and Aranesp * Hx of Breast Cancer * new breast mass identified during this admission * Hx of DVT leg * Hx of COPD, Bronchiectasis, CAD, Mitral Regurg, Gout * Diarrhea PLANS: * Discussed with ID and Heme today, plan to transition today to cefdinir, 10 days of therapy. patient spiked an isolated fever today. Plan to monitor on cefdinir and if no fever, dc tomorrow. * Follow cultures closely * Continue to follow clinical course for resolution of symptoms and fevers * Eventual evaluation of breast mass per Oncology * Regarding the course of her MDS and the lack of response to treatment, she understands that she is not getting better and has a high chance of progression of disease. She is okay with a palliative approach to care if that becomes the recommended course over time. Recommend she have further discussions with Dr. Landeros over time * Chart reviewed and old records along with imaging showing patient with hx of MDS refractory to treatment, as patient new to me. * Hold further stool softeners as patient now with loose stools. Subjective: some diarrhea today. No pain or other complaints Objective: Vital Signs Temp Pulse Resp BP Pulse Ox 38.4 C H 89 18 120/58 L 90 L 12/15/18 12:12 12/15/18 12:12 12/15/18 12:12 12/15/18 12:12 12/15/18 12:12 Laboratory Results 12/15/18 06:20 12/15/18 06:20 12/14/18 12/15/18 12/16/18 05:59 05:59 05:59 Intake Total 350 600 Output Total 350 475 Balance 0 125 - Physical Exam Constitutional: no apparent distress, appears nourished, not in pain Eyes: PERRL, anicteric sclera, EOMI Ears, Nose, Mouth, Throat: moist mucous membranes, hearing normal, ears appear normal, no oral mucosal ulcers Cardiovascular: regular rate and rhythym, no murmur, rub, or gallop Respiratory: no respiratory distress, no rales or rhonchi, clear to auscultation Gastrointestinal: normoactive bowel sounds, soft, non-tender abdomen, no palpable masses Genitourinary: no bladder fullness, no bladder tenderness, no renal bruits Skin: no rashes or abrasions, no fluctuance, no induration Musculoskeletal: full muscle strength, no muscle tenderness, normal joint ROM Neurologic: AAOx3, sensation intact bilaterally Psychiatric: interacting appropriately, not anxious, not encephalopathic, thought process linear Lymph, Heme, Immunologic: no cervical LAD, no supraclavicular LAD ICD10 Worksheet Patient Problems: Problems Problem Status Onset Anemia Acute Dehydration Acute Myelodysplastic syndrome Acute Neutropenia Acute
[2018-12-15] MEDS: SENNOSIDES/DOCUSATE SODIUM TAB PO SCH (17:20)
[2018-12-15] MEDS ORDERED: ALTEPLASE 2 MG VIAL IVP PRN (19:49)
[2018-12-16] MEDS: MELATONIN 3 MG TAB PO SCH (01:04)
[2018-12-16] MEDS: CEPACOL LOZENGE PO PRN (01:24)
[2018-12-16] MEDS: ACETAMINOPHEN 325 MG TAB PO PRN ×2 (01:24→13:49)
[2018-12-16] MEDS: LEVOTHYROXINE 88 MCG TAB PO SCH (05:02)
[2018-12-16 05:24] LABS: PLATELET COUNT 72 10^3/uL (150-400)
[2018-12-16] MEDS: CHOLECALCIFEROL VIT D3 2,000 UNITS TAB/CAP PO SCH (09:15)
[2018-12-16] MEDS: CEFDINIR 300 MG CAP PO SCH (09:15)
[2018-12-16] MEDS ORDERED: POTASSIUM CL 10 MEQ TAB PO ONE ×2 (09:18→19:42)
--- NOTE | 2018-12-16 11:48 | SOAPPROG ---
SOAP Progress Note Assessment/Plan: Assessment/Plan: 88 yo woman w MDS most recently on azacitadine/venetoclax admitted w pancytopenia and fever 1. fever - unclear source but thought that marquise-rectal phlegmon playing a role workup otherwise negative transitioned to po Cefdinir but spiked another temp last night exam unremarkable today question whether fevers all related to underlying bone marrow disorder I would recommend repeat bone marrow to eval evolution to acute leukemia (last marrow documented was 04/2017) Marrow had showsn 11q del and TET2 and AXSL mutations which are poor prgnostic signs Pt refusing marrow and may be thinking more towards palliative care She has not been tolerating therapy well at all 2. MDS - see above poor tolerance to Aza/venetoclax 3. Pancytopenia - chronic not currently on anti-fungal or anti-viral no need for transfusion support today No GCSF recommended with RAEB-1 Likely will need another day in the hospital 12/16/18 11:42 12/16/18 11:49 Subjective: Another fever overnight Reports low back pain Objective: Vital Signs Temp Pulse Resp BP Pulse Ox 37.2 C 93 16 122/60 H 90 L 12/16/18 11:23 12/16/18 11:23 12/16/18 11:23 12/16/18 11:23 12/16/18 11:23 Laboratory Results 12/16/18 04:47 12/16/18 04:47 12/15/18 12/16/18 12/17/18 05:59 05:59 05:59 Intake Total 600 300 Output Total 475 400 200 Balance 125 -100 -200 Gen - chronically ill appearing HEENT - pale conjunctiva OP clear without mucositis or lesions CV - RRR Chest - crackles at bases Abd - soft, BS+, NT Ext - no sig edema Neuro - nonfocal ICD10 Worksheet Patient Problems: Problems Problem Status Onset Anemia Acute Dehydration Acute Myelodysplastic syndrome Acute Neutropenia Acute
--- NOTE | 2018-12-16 13:47 | HOSPPROG ---
Hospitalist Progress Note Assessment/Plan: DIAGNOSES: * Perirectal phlegmon, less likely abscess, as cause of acute presentation * Neutropenic Fever * Dyspnea, chronic mildly aggravated by her acute illness * Pancytopenia due to MDS and its treatment -significant neutropenia and anemia persist; no signs of bleeding * Severe anemia - 2 units red blood cells given 12/11 * MDS on treatment with Venetoclax and Aranesp * Hx of Breast Cancer * new breast mass identified during this admission * Hx of DVT leg * Hx of COPD, Bronchiectasis, CAD, Mitral Regurg, Gout * Diarrhea PLANS: * discussed with oncology, and fevers, may be related to progression of MDS to acute disease. spiked fever to 102 today on cefdinir. will discuss wtih ID transitioning back to cefepime, although still no obvious source. * Follow cultures closely * Continue to follow clinical course for resolution of symptoms and fevers * Eventual evaluation of breast mass per Oncology * Regarding the course of her MDS and the lack of response to treatment, she understands that she is not getting better and has a high chance of progression of disease. She is okay with a palliative approach to care if that becomes the recommended course over time. Recommend she have further discussions with Dr. Landeros over time * Chart reviewed and old records along with imaging showing patient with hx of MDS refractory to treatment, as patient new to me. * Hold further stool softeners as patient now with loose stools. Subjective: feels fine today. no pain, complaints. Objective: Vital Signs Temp Pulse Resp BP Pulse Ox 39.2 C H 93 16 122/60 H 90 L 12/16/18 13:43 12/16/18 11:23 12/16/18 11:23 12/16/18 11:23 12/16/18 11:23 Laboratory Results 12/16/18 04:47 12/16/18 04:47 12/15/18 12/16/18 12/17/18 05:59 05:59 05:59 Intake Total 600 300 Output Total 475 400 200 Balance 125 -100 -200 - Physical Exam Constitutional: no apparent distress, appears nourished, not in pain Eyes: PERRL, anicteric sclera, EOMI Ears, Nose, Mouth, Throat: moist mucous membranes, hearing normal, ears appear normal, no oral mucosal ulcers Cardiovascular: regular rate and rhythym, no murmur, rub, or gallop Respiratory: no respiratory distress, no rales or rhonchi, clear to auscultation Gastrointestinal: normoactive bowel sounds, soft, non-tender abdomen, no palpable masses Genitourinary: no bladder fullness, no bladder tenderness, no renal bruits Skin: no rashes or abrasions, no fluctuance, no induration Musculoskeletal: full muscle strength, no muscle tenderness, normal joint ROM Neurologic: AAOx3, sensation intact bilaterally Psychiatric: interacting appropriately, not anxious, not encephalopathic, thought process linear Lymph, Heme, Immunologic: no cervical LAD, no supraclavicular LAD ICD10 Worksheet Patient Problems: Problems Problem Status Onset Anemia Acute Dehydration Acute Myelodysplastic syndrome Acute Neutropenia Acute
--- NOTE | 2018-12-16 15:27 | PCMIDPN ---
Assessment/Plan: 1. Perirectal phlegmon in the setting of underlying MDS with chronic neutropenia now with new fevers: Spent quite some time talking with her again today. She states she has exquisite pain in her right SI joint, and is very worried about this area. Perirectal region underwhelming on physical exam, with no skin changes or tenderness whatsoever. Differential diagnosis of new fever includes possible line infection, worsening of perirectal phlegmon, fungemia, verses non infectious cause secondary to transformation of MDS. No diarrhea to suggest C difficile. No cough to suggest new or nosocomial pneumonia. Aspergillosis or drug fever seem unlikely. For now, plan is as follows after long conversation with patient: * Discontinue cefdinir; start meropenem 1 g IV q.8 hours * CT scan without contrast of right SI joint, as well as perirectal area to further evaluate/characterize recent phlegmon seen on CT December 11 * Before change in antibiotics above, repeat blood cultures and fungal culture * Also spoke at length with Oncology, Dr. Radha Kyle. Patient refuses repeat bone marrow biopsy, but we both felt that sending flow cytometry would not be unreasonable. * Patient is tearful, and would like to speak with a 7th grade social studies teacher (she states she turned them away yesterday), as she realizes now she needs help. Over 30 min spent with this patient today. 12/16/18 15:21 Subjective: Patient unfortunately developed a low-grade fever yesterday, and then a significant fever of 39.2 today. Denies any rigors or shaking chills during the fever. Only complaint is "lightning bolt" pain in her right SI joint. Denies any rectal pain. No additional episodes of diarrhea. No nausea vomiting cough blurred vision or headache, sore throat, abdominal pain, dysuria or other. No focal weakness. Talked to her at length about plan moving forward , and options. Oncology is concerned about possible leukemic transformation of MDS, but patient is refusing a bone marrow biopsy. Objective: Cefdinir 300 mg twice a day (oral antibiotics day 1), total antibiotics day for T-max 39.2 degrees Vital Signs Temp Pulse Resp BP Pulse Ox 36.8 C 93 16 122/60 H 90 L 12/16/18 14:44 12/16/18 11:23 12/16/18 11:23 12/16/18 11:23 12/16/18 11:23 Laboratory Results 12/16/18 04:47 12/16/18 04:47 12/15/18 12/16/18 12/17/18 05:59 05:59 05:59 Intake Total 600 300 Output Total 475 400 200 Balance 125 -100 -200 No microbiologic data since December 11, when blood cultures were negative Remains neutropenic - Physical Exam General Appearance: alert, no apparent distress, other (Tearful) EENT: No scleral icterus, No thrush Respiratory: crackles (At lung bases) Cardiac/Chest: regular rate, rhythm Extremities: other (PICC line right upper extremity looks fine) Abdomen: non-tender, soft Rectal: other (Perirectal region without obvious hemorrhoids or surrounding erythema. No tenderness to palpation whatsoever.) Back: other (No tenderness along the LS spine, some tenderness along right SI joint) Neuro/Psych: oriented x 3 ICD10 Worksheet Patient Problems: Problems Problem Status Onset Anemia Acute Dehydration Acute Myelodysplastic syndrome Acute Neutropenia Acute
[2018-12-16] MEDS: MEROPENEM 1 GM in NS 100 ML IV SCH ×2 (16:30→23:40)
[2018-12-16] MEDS: SENNOSIDES/DOCUSATE SODIUM TAB PO SCH (21:26)
[2018-12-17] MEDS: MELATONIN 3 MG TAB PO SCH ×2 (01:11→22:42)
[2018-12-17] MEDS: LEVOTHYROXINE 88 MCG TAB PO SCH (06:31)
[2018-12-17] MEDS: MEROPENEM 1 GM in NS 100 ML IV SCH ×3 (07:46→22:37)
[2018-12-17 08:39] LABS: PLATELET COUNT 89 10^3/uL (150-400)
--- NOTE | 2018-12-17 09:01 | PCMIDPN ---
Assessment/Plan: 1. Perirectal phlegmon in patient with underlying MDS and chronic neutropenia: Afebrile overnight. CT scan (without contrast) reassuring that perirectal thickening is improving. Right SI joint without obvious pathology. Pain yesterday may have been musculoskeletal in nature. For now, would continue meropenem as is pending further decision making regarding the overall plan for her moving forward. The patient is miserable; she does not want to eat, and feels extremely tired. She does not want to go to a nursing facility. I do feel the patient would benefit from a palliative care evaluation, and heart-to- heart conversation with her oncologist. In the short term, will ask for a dietary consult, and likely give her some blood today. (Nurse will speak with oncologist on-call). Subjective: CT scan reviewed with Dr. Jefferson. This was without contrast given patient' s allergies, but the right SI joint was negative for any obvious pathology. Perirectal phlegmon seen on previous CT is better, with some residual thickening noted of the rectum. Patient overall feels terrible, and is weak and does not want to eat. Talked to her about a retirement facility, which she declined. That said, she would like to talk with the social worker psychiatric today, and she feels that she needs blood. She denies any new aches or pains, but is nauseated. No vomiting. Objective: Meropenem 1 g IV q.8 hours day 1 (antibiotics day 5) T-max 39.2 degrees yesterday afternoon, no fever overnight Vital Signs Temp Pulse Resp BP Pulse Ox 37.1 C 80 16 126/60 H 96 12/17/18 07:24 12/17/18 07:24 12/17/18 07:24 12/17/18 07:24 12/17/18 07:24 Laboratory Results 12/17/18 07:52 12/17/18 06:45 12/16/18 12/17/18 12/18/18 05:59 05:59 05:59 Intake Total 300 400 Output Total 400 1610 Balance -100 -1210 Repeat blood cultures and fungal culture are pending from December 16 - Physical Exam General Appearance: other (Looks on the verge of tears.) EENT: pharynx normal, No thrush Respiratory: crackles (Lung bases) Cardiac/Chest: regular rate, rhythm, other (Distant heart sounds.) Extremities: other (PICC line right upper extremity looks fine) Abdomen: non-tender, soft Rectal: other (I did not examine her perirectal area today; I have examined it over the past 2 days and it looks fine. ) Skin: No rash Neuro/Psych: oriented x 3 ICD10 Worksheet Patient Problems: Problems Problem Status Onset Anemia Acute Dehydration Acute Myelodysplastic syndrome Acute Neutropenia Acute
[2018-12-17] MEDS: CHOLECALCIFEROL VIT D3 2,000 UNITS TAB/CAP PO SCH (10:08)
[2018-12-17] MEDS: SENNOSIDES/DOCUSATE SODIUM TAB PO SCH ×3 (10:09→22:59)
--- NOTE | 2018-12-17 11:51 | HOSPPROG ---
Hospitalist Progress Note Assessment/Plan: Assessment * Neutropenic Fever - source unclear-repeat CT scan reviewed by myself today and no obvious source of infection or explanation of SI joint pain. Discussed with ID and patient has clearly improved on meropenem. Fevers could be related to disease progression as well. * Dyspnea, chronic mildly aggravated by her acute illness * Pancytopenia due to MDS and its treatment -significant neutropenia and anemia persist; no signs of bleeding * Severe anemia - 2 units red blood cells given 12/11, and another unit on 12/17 * MDS on treatment with Venetoclax and Aranesp- patient not interested in repeat bone marrow or chemo. * Hx of Breast Cancer * new breast mass identified during this admission * Hx of DVT leg * Hx of COPD, Bronchiectasis, CAD, Mitral Regurg, Gout * Diarrhea Plan * cont meropenem, consider transition to avelox on dc * tranfusion of 1 unit PRBCs today * Follow cultures closely * Continue to follow clinical course for resolution of symptoms and fevers * Eventual evaluation of breast mass per Oncology * Regarding the course of her MDS and the lack of response to treatment, she understands that she is not getting better and has a high chance of progression of disease. She is okay with a palliative approach to care if that becomes the recommended course over time. Recommend she have further discussions with Dr. Landeros. * Hold further stool softeners as patient now with loose stools. Subjective: patient very tired today. Objective: Vital Signs Temp Pulse Resp BP Pulse Ox 37.4 C 88 16 140/72 H 89 L 12/17/18 11:21 12/17/18 11:21 12/17/18 11:21 12/17/18 11:21 12/17/18 11:21 Laboratory Results 12/17/18 07:52 12/17/18 06:45 12/16/18 12/17/18 12/18/18 05:59 05:59 05:59 Intake Total 300 400 Output Total 400 1610 Balance -100 -1210 - Physical Exam Constitutional: chronically ill appearing Eyes: PERRL, anicteric sclera, EOMI Ears, Nose, Mouth, Throat: moist mucous membranes, hearing normal, ears appear normal, no oral mucosal ulcers Cardiovascular: regular rate and rhythym, no murmur, rub, or gallop Respiratory: other (crackles at right base. otherwise clear) Gastrointestinal: normoactive bowel sounds, soft, non-tender abdomen, no palpable masses Genitourinary: no bladder fullness, no bladder tenderness, no renal bruits Skin: no rashes or abrasions, no fluctuance, no induration Musculoskeletal: generalized weakness Neurologic: AAOx3, sensation intact bilaterally Psychiatric: interacting appropriately, not anxious, not encephalopathic, thought process linear Lymph, Heme, Immunologic: no cervical LAD, no supraclavicular LAD ICD10 Worksheet Patient Problems: Problems Problem Status Onset Anemia Acute Dehydration Acute Myelodysplastic syndrome Acute Neutropenia Acute
--- NOTE | 2018-12-17 12:07 | SOAPPROG ---
SOAP Progress Note Assessment/Plan: Assessment/Plan: 88 yo woman w MDS most recently on azacitadine/venetoclax admitted w pancytopenia and fever 1. fever - unclear source but think that marquise-rectal phlegmon playing a role workup otherwise negative repeat CT showed improvement; ID switched pt to meropenem given ongoing fevers question whether fevers all related to underlying bone marrow disorder at all I discussed repeat bone marrow to eval evolution to acute leukemia (last marrow documented was 04/2017); pt refuses Marrow had shown 11q del and TET2 and AXSL mutations which are poor prgnostic signs Pt moving towards palliative care at this time and transfusion support 2. MDS - see above poor tolerance to Aza/venetoclax and wishes to stop 3. Pancytopenia - chronic not currently on anti-fungal or anti-viral pt requesting blood today as she is very weak No GCSF recommended with RAEB-1 Likely will need another day in the hospital 12/17/18 12:06 Subjective: Feeling weak and tired today Objective: Vital Signs Temp Pulse Resp BP Pulse Ox 37.4 C 88 16 140/72 H 89 L 12/17/18 11:21 12/17/18 11:21 12/17/18 11:21 12/17/18 11:21 12/17/18 11:21 Laboratory Results 12/17/18 07:52 12/17/18 06:45 12/16/18 12/17/18 12/18/18 05:59 05:59 05:59 Intake Total 300 400 Output Total 400 1610 Balance -100 -1210 Gen - chronically ill appearing CV - tachy Chest - clear anteriorly Abd - soft, NT, BS+ Ext - no change in LE edema ICD10 Worksheet Patient Problems: Problems Problem Status Onset Anemia Acute Dehydration Acute Myelodysplastic syndrome Acute Neutropenia Acute
--- NOTE | 2018-12-17 14:09 | ASMTCMCOM ---
CM Note CM Note Notes: NICOLE Cabello informed me Pt wanted to discuss Palliative vs Hospice care. This CM and eSrina (Mars) met with Pt, Son and to answer questions. Hospice and Palliative were explained and Pt/family open to meeting with [facility] on Tuesday. Serina to update [facility] hospice. /daughter would like to be called ( Analisa ) in the morning with a time, so both can attend the meeting. Analisa will drive her father to the hospital. Pt would like her care at home to be provided by one agency rather then several different ones. CM available if more needs arise. Plan: Pt will likely discharge home with HHC or Hospice/Palliative Care Date Signed: 12/17/2018 02:08 PM Electronically Signed By:Ayaka Cosme
[2018-12-17] MEDS: ONDANSETRON 4 MG/2 ML VIAL IVP PRN (14:24)
[2018-12-17] MEDS: ACETAMINOPHEN 325 MG TAB PO PRN ×2 (14:50→19:37)
[2018-12-17] MEDS ORDERED: NS 1,000 ML IV SCH (17:00)
[2018-12-17] MEDS: diphenhydrAMINE 25 MG CAP PO PRN (19:37)
[2018-12-17] MEDS ORDERED: POTASSIUM CL 10 MEQ TAB PO ONE (20:05)
[2018-12-18] MEDS: CEPACOL LOZENGE PO PRN (02:04)
[2018-12-18] MEDS ORDERED: guaiFENesin 600 MG TAB.ER PO PRN (02:28)
[2018-12-18] MEDS: LEVOTHYROXINE 88 MCG TAB PO SCH (05:03)
[2018-12-18 05:35] LABS: PLATELET COUNT 119 10^3/uL (150-400)
[2018-12-18] MEDS: ACETAMINOPHEN 325 MG TAB PO PRN ×2 (07:30→20:31)
[2018-12-18] MEDS: MEROPENEM 1 GM in NS 100 ML IV SCH ×3 (07:34→22:46)
[2018-12-18] MEDS: ONDANSETRON 4 MG/2 ML VIAL IVP PRN (07:34)
[2018-12-18] MEDS: CHOLECALCIFEROL VIT D3 2,000 UNITS TAB/CAP PO SCH (09:31)
[2018-12-18] MEDS: SENNOSIDES/DOCUSATE SODIUM TAB PO SCH ×2 (10:13→22:45)
--- NOTE | 2018-12-18 14:11 | SOAPPROG ---
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 1. fever - likely marquise-rectal process. ID following for abx duration recommendations. 2. MDS - She declined repeat bmbx to assess disease. Moving toward palliative care. Palliative conference p/t discharge and she will f/u with Dr. Landeros regarding tx plans. 3. Pancytopenia - chronic d/w Dr. Landeros, office will coordinate f/u appt. 12/18/18 14:08 Subjective: Eager to go home. No new concerns. PE: Vs reviewed. Gen: Dressed, in chair. NAD. Pale. Lungs: breathing comfortably. Laboratory Tests 12/18/18 04:55 WBC 0.48 L* Hgb 9.0 L Plt Count 119 L Absolute Seg Neuts 0.16 L Absolute Band Neuts 0.00 Objective: Vital Signs Temp Pulse Resp BP Pulse Ox 36.7 C 84 16 139/67 H 91 L 12/18/18 13:21 12/18/18 13:21 12/18/18 13:21 12/18/18 13:21 12/18/18 13:21 Laboratory Results 12/18/18 04:55 12/18/18 04:55 12/17/18 12/18/18 12/19/18 05:59 05:59 05:59 Intake Total 400 1268 Output Total 3696 530 Balance -1210 538 ICD10 Worksheet Patient Problems: Problems Problem Status Onset Anemia Acute Dehydration Acute Myelodysplastic syndrome Acute Neutropenia Acute
[2018-12-18] MEDS: ALBUTEROL 60 PUFFS/8 GM MDI IH PRN (15:33)
--- NOTE | 2018-12-18 16:11 | HOSPPROG ---
Hospitalist Progress Note Assessment/Plan: Assessment * Neutropenic Fever - source unclear-repeat CT scan reviewed by myself today and no obvious source of infection or explanation of SI joint pain. Discussed with ID and patient has clearly improved on meropenem. Fevers could be related to disease progression as well. * Dyspnea, chronic mildly aggravated by her acute illness * Pancytopenia due to MDS and its treatment -significant neutropenia and anemia persist; no signs of bleeding * Severe anemia - 2 units red blood cells given 12/11, and another unit on 12/17 * MDS on treatment with Venetoclax and Aranesp- patient not interested in repeat bone marrow or chemo. * Hx of Breast Cancer * new breast mass identified during this admission * Hx of DVT leg * Hx of COPD, Bronchiectasis, CAD, Mitral Regurg, Gout * Diarrhea Plan * cont meropenem, consider transition to avelox on dc, still low grade fevers. * tranfusion of 1 unit PRBCs yesterday with great response. * Follow cultures closely * Continue to follow clinical course for resolution of symptoms and fevers * Eventual evaluation of breast mass per Oncology * Palliative care meeting for today, then likely follow up with Dr. Landeros in outpatient setting. * Hold further stool softeners as patient now with loose stools. Subjective: feels better today after unit of blood. Objective: Vital Signs Temp Pulse Resp BP Pulse Ox 37.7 C 97 16 165/82 H 94 12/18/18 15:17 12/18/18 15:17 12/18/18 15:17 12/18/18 15:17 12/18/18 15:17 Laboratory Results 12/18/18 04:55 12/18/18 04:55 12/17/18 12/18/18 12/19/18 05:59 05:59 05:59 Intake Total 400 1268 Output Total 1610 730 Balance -1210 538 - Physical Exam Constitutional: no apparent distress, appears nourished, not in pain Eyes: PERRL, anicteric sclera, EOMI Ears, Nose, Mouth, Throat: moist mucous membranes, hearing normal, ears appear normal, no oral mucosal ulcers Cardiovascular: regular rate and rhythym, no murmur, rub, or gallop Respiratory: no respiratory distress, no rales or rhonchi, clear to auscultation Gastrointestinal: normoactive bowel sounds, soft, non-tender abdomen, no palpable masses Genitourinary: no bladder fullness, no bladder tenderness, no renal bruits Skin: no rashes or abrasions, no fluctuance, no induration Musculoskeletal: full muscle strength, no muscle tenderness, normal joint ROM Neurologic: AAOx3, sensation intact bilaterally Psychiatric: interacting appropriately, not anxious, not encephalopathic, thought process linear Lymph, Heme, Immunologic: no cervical LAD, no supraclavicular LAD ICD10 Worksheet Patient Problems: Problems Problem Status Onset Anemia Acute Dehydration Acute Myelodysplastic syndrome Acute Neutropenia Acute
--- NOTE | 2018-12-18 16:45 | PCMIDPN ---
Assessment/Plan: Assessment: Probable perirectal phlegmon he in the setting of neutropenia secondary to myelodysplastic syndrome and the treatment thereof. Patient is clinically improving on IV meropenem 1 g q.8 hours. She had a near fever yesterday which may have been interrupted by a dose of Tylenol. This is improved from the day before when she had a fever greater than 39 degrees. Overall she feels better but still has significant anorexia and weakness. Plan to continue the meropenem for another 24 hr in re-evaluate based on fever curve and clinical examination. Agree with Dr. Del Rosario that given the fact the patient is refusing further bone marrow aspirates and escalation of therapy the potential for palliative or hospice evaluation is great. Plan: 1. Continue IV meropenem at present. Possible switch over to oral equivalents in the next 24-48 hours. 2. Continue to evaluate fever curve and clinical examination. 12/18/18 16:42 12/18/18 16:43 Subjective: Patient is sitting up in a chair in her hospital room. She has 2 family members at bedside. She states that she feels somewhat better today than she did yesterday. She still has pressures little to eat during the day. She fears constipation. She is not had a significant temperature elevation as yet today. Objective: Meropenem # 6 Vital Signs Temp Pulse Resp BP Pulse Ox 37.7 C 97 16 165/82 H 94 12/18/18 15:17 12/18/18 15:17 12/18/18 15:17 12/18/18 15:17 12/18/18 15:17 Laboratory Results 12/18/18 04:55 12/18/18 04:55 12/17/18 12/18/18 12/19/18 05:59 05:59 05:59 Intake Total 400 1268 Output Total 1610 730 Balance -1210 538 - Physical Exam General Appearance: WD/WN, alert, no apparent distress, non-toxic Respiratory: lungs clear, normal breath sounds, No respiratory distress Cardiac/Chest: regular rate, rhythm, No tachycardia Skin: normal color, warm/dry, No rash Neuro/Psych: alert, normal mood/affect, oriented x 3 ICD10 Worksheet Patient Problems: Problems Problem Status Onset Anemia Acute Dehydration Acute Myelodysplastic syndrome Acute Neutropenia Acute
--- NOTE | 2018-12-18 17:59 | ASMTLACE ---
LACE Length of stay for Answers: 7-13 days current admission Acuity / Level of Answers: Yes Care: Did the patient have an inpatient admission? Comorbidities - select Answers: Any tumor (including all that apply lymphoma or leukemia) Chronic pulmonary disease Coronary Artery Disease Other Notes: MDS; HTN; Hypothyroid # of Emergency department Answers: 1-2 visits in the last 6 months Score: 16 Date Signed: 12/18/2018 03:24 PM Electronically Signed By:Rosa Munson
--- NOTE | 2018-12-18 18:41 | ASMTCMCOM ---
CM Note CM Note Notes: CM met with Pt and family to let them know [facility]an[facility] would meet today but instead Na set a time for tomorrow at 1030 with xenia Raman and Davey so everyone could be present. Referral sent to Na. CM available for needs. PLAN:TBD Date Signed: 12/18/2018 05:35 PM Electronically Signed By:Ayaka Cosme
[2018-12-18] MEDS: MELATONIN 3 MG TAB PO SCH (22:45)
[2018-12-19] MEDS: LEVOTHYROXINE 88 MCG TAB PO SCH (04:52)
[2018-12-19 05:10] LABS: PLATELET COUNT 112 10^3/uL (150-400)
[2018-12-19] MEDS: SENNOSIDES/DOCUSATE SODIUM TAB PO SCH ×2 (08:16→19:47)
[2018-12-19] MEDS: CHOLECALCIFEROL VIT D3 2,000 UNITS TAB/CAP PO SCH (08:16)
[2018-12-19] MEDS: MEROPENEM 1 GM in NS 100 ML IV SCH ×3 (08:16→23:10)
[2018-12-19] MEDS: CEPACOL LOZENGE PO PRN (09:32)
--- NOTE | 2018-12-19 14:40 | HOSPPROG ---
Hospitalist Progress Note Assessment/Plan: Assessment * Neutropenic Fever - source unclear-repeat CT scan reviewed by myself today and no obvious source of infection or explanation of SI joint pain. Discussed with ID and patient has clearly improved on meropenem. Fevers could be related to disease progression as well. * Dyspnea, chronic mildly aggravated by her acute illness * Pancytopenia due to MDS and its treatment -significant neutropenia and anemia persist; no signs of bleeding * Severe anemia - 2 units red blood cells given 12/11, and another unit on 12/17 * MDS on treatment with Venetoclax and Aranesp- patient not interested in repeat bone marrow or chemo. * Hx of Breast Cancer * new breast mass identified during this admission * Hx of DVT leg * Hx of COPD, Bronchiectasis, CAD, Mitral Regurg, Gout * Diarrhea Plan * cont meropenem, consider transition to avelox on dc, still low grade fevers. * discussed with oncology, patient thinks she would like to pursue further treatment. * Follow cultures closely * Continue to follow clinical course for resolution of symptoms and fevers * Eventual evaluation of breast mass per Oncology * Palliative care meeting for today, then likely follow up with Dr. Landeros in outpatient setting. * Hold further stool softeners as patient now with loose stools. Subjective: no diarrhea, no further complaints. Objective: Vital Signs Temp Pulse Resp BP Pulse Ox 37.4 C 82 16 149/73 H 96 12/19/18 11:58 12/19/18 11:58 12/19/18 11:58 12/19/18 11:58 12/19/18 11:58 Laboratory Results 12/19/18 04:55 12/19/18 04:55 12/18/18 12/19/18 12/20/18 05:59 05:59 05:59 Intake Total 1268 910 Output Total 730 500 Balance 538 410 - Physical Exam Constitutional: no apparent distress, appears nourished, not in pain Eyes: PERRL, anicteric sclera, EOMI Ears, Nose, Mouth, Throat: moist mucous membranes, hearing normal, ears appear normal, no oral mucosal ulcers Cardiovascular: regular rate and rhythym, no murmur, rub, or gallop Respiratory: no respiratory distress, no rales or rhonchi, clear to auscultation Gastrointestinal: normoactive bowel sounds, soft, non-tender abdomen, no palpable masses Genitourinary: no bladder fullness, no bladder tenderness, no renal bruits Skin: no rashes or abrasions, no fluctuance, no induration Musculoskeletal: full muscle strength, no muscle tenderness, normal joint ROM Neurologic: AAOx3, sensation intact bilaterally Psychiatric: interacting appropriately, not anxious, not encephalopathic, thought process linear Lymph, Heme, Immunologic: no cervical LAD, no supraclavicular LAD ICD10 Worksheet Patient Problems: Problems Problem Status Onset Anemia Acute Dehydration Acute Myelodysplastic syndrome Acute Neutropenia Acute
[2018-12-19] MEDS: ACETAMINOPHEN 325 MG TAB PO PRN (14:52)
--- NOTE | 2018-12-19 15:57 | ASMTCMCOM ---
CM Note CM Note Notes: [facility] palliative care meet with Pt and family and they have decided to go home with [facility]. This CM Met with Pt in the afternoon and Pt was having a great day. Refurrals for bot [facility] and [facility] placed but Pt informed me she did not want [facility]. Pt will continue on Antibiotics and is eating more. CM Available for needs PLAN: Home with Na [facility] and [facility] infusion team. Date Signed: 12/19/2018 03:56 PM Electronically Signed By:Ayaka Cosme
--- NOTE | 2018-12-19 18:17 | SOAPPROG ---
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 1. fever - due to marquise-rectal process. ID following. Currently on meropenem, may switch to orals. 2. MDS - She declined repeat bmbx to assess disease. She will f/u with Dr. Landeros regarding tx plans. 3. Pancytopenia - chronic d/w Dr. Landeros, office will coordinate f/u appt. Subjective: No complaints, eager for discharge. Objective: Vital Signs Temp Pulse Resp BP Pulse Ox 37.9 C 88 16 146/72 H 95 12/19/18 15:28 12/19/18 15:28 12/19/18 15:28 12/19/18 15:28 12/19/18 15:28 Laboratory Results 12/19/18 04:55 12/19/18 17:30 12/18/18 12/19/18 12/20/18 05:59 05:59 05:59 Intake Total 1268 910 Output Total 730 500 Balance 538 410 Physical Exam - Physical Exam General Appearance: no apparent distress Respiratory: lungs clear Abdomen: non-tender, soft Extremities: No pedal edema ICD10 Worksheet Patient Problems: Problems Problem Status Onset Anemia Acute Dehydration Acute Myelodysplastic syndrome Acute Neutropenia Acute
--- NOTE | 2018-12-19 18:36 | PCMIDPN ---
Assessment/Plan: Assessment/Plan: * Neutropenic fever with probable perirectal phlegmon: Overall significantly improved without recurrent high grade fever. Continue meropenem. If no further significant fever overnight anticipate resumption of cefdinir 300 mg bid in am. Primary issue is prolonged neutropenia which will create ongoing risk for infectious complications or recurrent perirectal infection. 12/19/18 18:30 Subjective: Patient feels markedly improved. Denies any perirectal pain. No diarrhea today. Hoping she may be able to go home tomorrow. Objective: Vital Signs Temp Pulse Resp BP Pulse Ox 37.9 C 88 16 146/72 H 95 12/19/18 15:28 12/19/18 15:28 12/19/18 15:28 12/19/18 15:28 12/19/18 15:28 Laboratory Results 12/19/18 04:55 12/19/18 17:30 12/18/18 12/19/18 12/20/18 05:59 05:59 05:59 Intake Total 1268 910 300 Output Total 730 500 Balance 538 410 300 Meropenem # 3 (antibiotics # 7) Temperature maximum 37.9 Blood cultures 12/16/2018 no growth today - Physical Exam General Appearance: alert, no apparent distress EENT: No scleral icterus, No thrush Respiratory: lungs clear, No respiratory distress Cardiac/Chest: regular rate, rhythm Abdomen: non-tender, No distended Skin: No rash - Line/s RUE PICC Lines: No drainage, No erythema - Time Spent With Patient Time Spent with Patient: greater than 25 minutes Time Spent with Patient: Greater than 25 minutes spent on this patients care, greater than 50% of time spent counseling, educating, and coordinating care regarding the above mentioned plan. ICD10 Worksheet Patient Problems: Problems Problem Status Onset Anemia Acute Dehydration Acute Myelodysplastic syndrome Acute Neutropenia Acute
[2018-12-19] MEDS: MELATONIN 3 MG TAB PO SCH (19:37)
[2018-12-19] MEDS: ALBUTEROL 60 PUFFS/8 GM MDI IH PRN (23:11)
[2018-12-20] MEDS: LEVOTHYROXINE 88 MCG TAB PO SCH (04:37)
[2018-12-20 05:06] LABS: PLATELET COUNT 135 10^3/uL (150-400)
[2018-12-20] MEDS: MEROPENEM 1 GM in NS 100 ML IV SCH (07:54)
[2018-12-20] MEDS: CHOLECALCIFEROL VIT D3 2,000 UNITS TAB/CAP PO SCH (08:30)
[2018-12-20] MEDS: SENNOSIDES/DOCUSATE SODIUM TAB PO SCH ×2 (08:30→20:10)
[2018-12-20] MEDS: ACETAMINOPHEN 325 MG TAB PO PRN (12:16)
[2018-12-20] MEDS: ONDANSETRON 4 MG/2 ML VIAL IVP PRN (12:16)
--- NOTE | 2018-12-20 12:41 | SOAPPROG ---
SOAP Progress Note Assessment/Plan: Assessment: 1. MDS 2. Neutropenic fever 3. Rectal phlegmon Plan: - continue abx - convert to PO today - if stable and afebrile, OK for discharge from my perspective - will f/u with Dr. Landeros in clinic to discuss further management of MDS (will likely stop azacitidine/venetoclax and puruse supportive care / transfusions alone) 25min spent w/ pt and in coordination of care. 12/20/18 12:40 Subjective: some nausea today. low grade temp last night (37.3) Objective: exam: NAD Lungs CTAB cV RRR no MGR Abd: +BS NT ND Ext: no edema Vital Signs Temp Pulse Resp BP Pulse Ox 37.1 C 84 14 148/62 H 96 12/20/18 11:06 12/20/18 11:06 12/20/18 11:06 12/20/18 11:06 12/20/18 11:06 Laboratory Results 12/20/18 04:30 12/20/18 04:30 12/19/18 12/20/18 12/21/18 05:59 05:59 05:59 Intake Total 910 450 Output Total 500 300 400 Balance 410 150 -400 ICD10 Worksheet Patient Problems: Problems Problem Status Onset Anemia Acute Dehydration Acute Myelodysplastic syndrome Acute Neutropenia Acute
[2018-12-20] MEDS: EPOETIN ALFA 10,000 UNIT/ML VIAL SC SCH (12:45)
[2018-12-20] MEDS: CEFDINIR 300 MG CAP PO SCH ×2 (12:46→20:08)
--- NOTE | 2018-12-20 14:42 | HOSPPROG ---
Hospitalist Progress Note Assessment/Plan: Assessment * Neutropenic Fever - source unclear-repeat CT scan reviewed by myself today and no obvious source of infection or explanation of SI joint pain. Discussed with ID, transitioned to PO cefdinir 300mg bid * Dyspnea, chronic mildly aggravated by her acute illness * Pancytopenia due to MDS and its treatment -significant neutropenia and anemia persist; no signs of bleeding * Severe anemia - 2 units red blood cells given 12/11, and another unit on 12/17 * MDS on treatment with Venetoclax and Aranesp- patient not interested in repeat bone marrow or chemo. * Hx of Breast Cancer * new breast mass identified during this admission * Hx of DVT leg * Hx of COPD, Bronchiectasis, CAD, Mitral Regurg, Gout * Diarrhea Plan * Per ID dc on cefdinir 300mg for 10 days * discussed with oncology can discharge to follow up with Dr. Landeros * cultures negative. * Continue to follow clinical course for resolution of symptoms and fevers * Eventual evaluation of breast mass per Oncology * Palliative care meeting for today, then likely follow up with Dr. Landeros in outpatient setting. * Hold further stool softeners as patient now with loose stools. * DC tomorrow Subjective: feels very tired and chilled. Objective: Vital Signs Temp Pulse Resp BP Pulse Ox 37.1 C 84 14 148/62 H 96 12/20/18 11:06 12/20/18 11:06 12/20/18 11:06 12/20/18 11:06 12/20/18 11:06 Laboratory Results 12/20/18 04:30 12/20/18 04:30 12/19/18 12/20/18 12/21/18 05:59 05:59 05:59 Intake Total 910 450 Output Total 500 300 400 Balance 410 150 -400 - Physical Exam Constitutional: chronically ill appearing Eyes: PERRL, anicteric sclera, EOMI Ears, Nose, Mouth, Throat: moist mucous membranes, hearing normal, ears appear normal, no oral mucosal ulcers Cardiovascular: regular rate and rhythym, no murmur, rub, or gallop Respiratory: no respiratory distress, no rales or rhonchi, clear to auscultation Gastrointestinal: normoactive bowel sounds, soft, non-tender abdomen, no palpable masses Genitourinary: no bladder fullness, no bladder tenderness, no renal bruits Skin: no rashes or abrasions, no fluctuance, no induration Musculoskeletal: full muscle strength, no muscle tenderness, normal joint ROM Neurologic: AAOx3, sensation intact bilaterally Psychiatric: interacting appropriately, not anxious, not encephalopathic, thought process linear Lymph, Heme, Immunologic: no cervical LAD, no supraclavicular LAD ICD10 Worksheet Patient Problems: Problems Problem Status Onset Anemia Acute Dehydration Acute Myelodysplastic syndrome Acute Neutropenia Acute
--- NOTE | 2018-12-20 15:13 | PCMIDPN ---
Assessment/Plan: # neutropenic fever. Attributing source to c/w Perirectal phlegmon, improved on imaging 12/16. Last fever 12/16. Blood cx have been negative. --agree with step down to PO antibiotics continue cefdinir x 10 days. Notable gap in anaerobic coverage, but phlegmon size improved on cefepime alone and concern over nausea w flagyl. Patient will not take FQ or Augmentin at this point, although reactions not true allergies --discussed ongoing risks of continued infection with lack of neutrophil recovery. --oncology to determine if needs PICC --f/u ID 12/28 at 1300 Meds cefdinir 300mg PO BID meropenem 12/16- Cefepime 12/12- Microbiology 12/11/18 07:45 Blood Cx (2) Neg 12/16/18 15:55 Blood Cx (2) ngtd Subjective: patient want to go home tomorrow at 10am bowel movements soft, no diarrhea describing hot flashes that are very different from sweats (now gone) Objective: Vital Signs Temp Pulse Resp BP Pulse Ox 37.1 C 84 14 148/62 H 96 12/20/18 11:06 12/20/18 11:06 12/20/18 11:06 12/20/18 11:06 12/20/18 11:06 Laboratory Results 12/20/18 04:30 12/20/18 04:30 12/19/18 12/20/18 12/21/18 05:59 05:59 05:59 Intake Total 910 450 Output Total 500 300 400 Balance 410 150 -400 - Physical Exam General Appearance: alert, no apparent distress EENT: pale conjunctiva, No thrush Respiratory: lungs clear, No accessory muscle use Cardiac/Chest: regular rate, rhythm Abdomen: non-tender, soft Skin: No rash Neuro/Psych: alert, normal mood/affect, oriented x 3 - Line/s RUE PICC Lines: No drainage, No erythema - Time Spent With Patient Time Spent with Patient: greater than 35 minutes Time Spent with Patient: Greater than 35 minutes spent on this patients care, greater than 50% of time spent counseling, educating, and coordinating care regarding the above mentioned plan. ICD10 Worksheet Patient Problems: Problems Problem Status Onset Anemia Acute Dehydration Acute Myelodysplastic syndrome Acute Neutropenia Acute
--- NOTE | 2018-12-20 17:02 | ASMTCMCOM ---
CM Note CM Note Notes: Pt to discharge tomorrow with [facility] PT only. CM spoke with pt and with Yu from [facility]. Pt was admitted with PICC line and per pt this is for lab access at [facility] because PIVs fail on her. Pt is on oral chemo per pt. Yu from [facility] was to investigate this with pt's former RN and report back to [facility]. Pt states that the dressings that [facility] provided in the past make her skin irritated and she would rather have dressing changes performed by [facility] instead of home RN. Dr. Landeros's RN Sandra confirmed that this was fine with [facility]. Pt expressed dissatisfaction with previous PT that visited her from [facility] and she would like a different PT if she were to stay with [facility]. CM communicated this to Yu and Yu will investigate and provide a different PT. CM to follow. D/C Plan: [facility] PT Date Signed: 12/20/2018 05:02 PM Electronically Signed By:Bre Moore. NICOLE
--- NOTE | 2018-12-20 17:03 | ASMTCMCOM ---
CM Note CM Note Notes: ADDENDUM: Pt also signed on to [facility] Palliative care and referral was started. Date Signed: 12/20/2018 05:03 PM Electronically Signed By:Bre Willoughby RN
[2018-12-20] MEDS: MELATONIN 3 MG TAB PO SCH (19:41)
[2018-12-20] MEDS: ALBUTEROL 60 PUFFS/8 GM MDI IH PRN (19:41)
[2018-12-21] MEDS: LEVOTHYROXINE 88 MCG TAB PO SCH (04:48)
[2018-12-21 05:02] LABS: PLATELET COUNT 129 10^3/uL (150-400)
[2018-12-21 07:31] VITALS: BP 137/65
[2018-12-21] MEDS: CEFDINIR 300 MG CAP PO SCH (08:35)
[2018-12-21] MEDS: CHOLECALCIFEROL VIT D3 2,000 UNITS TAB/CAP PO SCH (08:35)
[2018-12-21] MEDS: SENNOSIDES/DOCUSATE SODIUM TAB PO SCH (08:36)
--- NOTE | 2018-12-21 09:29 | PDIAF ---
- Diagnosis Code Status: Do Not Resuscitate - Medication Management Discharge Medications: electronically signed and located in the Home Medication List. PICC Care - Routine: Yes - Orders Services needed: Home Care, Registered Nurse, Physical Therapy Home Care Face to Face: I certify that this patient was under my care and that I had the required [id number] encounter meeting the encounter requirements on the discharge day. My findings support the fact that the patient is homebound as defined in Home Care Face to Face Continued: CMS Chapter 7 Medicare Benefits Manual 30.1.1 , The condition of the patient is such that there exists a normal inability to leave home and consequently, leaving home would require a considerable and taxing effort. Isolation Type: Neutropenic Isolation [place]: Not applicable Additional Instructions: I sent prescriptions for two medications to your pharmacy. 1. Cefdinir - antibiotic. Take twice daily until you run out. 2. Stool softener. Take as needed. Follow up with Dr Landeros. You will also have follow up with Dr Suarez in the infectious disease clinic on 12/28. We are setting you up with home health physical therapy, nurse, and palliative care through [facility]. - Follow Up Care Current Providers and Referrals: Gavi Suarez MD [Medical Doctor] - 12/28/18 1:00 pm Marcia Hanna MD [Primary Care Provider] - As per Instructions
--- NOTE | 2018-12-21 11:05 | PDDCSUM ---
Discharge Summary Discharge Summary: Date of Admission: 12/11/2018 Date of Discharge: 12/21/2018 Consultants: infectious disease, oncology Studies: CT chest/abdomen, CT pelvis Discharge Diagnoses: 1. Neutropenic fever 2. Perirectal phlegmon, improving 3. Pancytopenia 4. MDS on azacitidine/venetoclax which are now held 5. COPD, bronchiectasis, chronic dyspnea 6. H/o leg DVT not currently on anticoagulation 7. H/o breast cancer Brief Hospital Course: 88yo F with MDS on therapy with azacitidine/venetoclax presented with generalized weakness and fevers. She was neutropenic. She was started on IV cefepime. CT of her chest/abd/pelvis showed a perirectal phlegmon. ID and oncology were consulted. She was switched to IV meropenem and had slow clinical improvement. A repeat CT showed decreased perirectal stranding and no visible phlegmon or abscess. Azacitidine and venetoclax were stopped however she remained neutropenic throughout her hospital course. She did require 2 units of PRBCs for chemo-induced anemia. Transitioned to cefdinir at time of discharge to complete 10 days of antibiotics (notable gap in anaerobic coverage but improved while on cefepime and concern over nausea with flagyl; also patient reports allergies to FQ and augmentin). She was set up with home health PT, RN, and palliative care through [facility]. Will follow up with Dr Landeros in clinic to discuss further management of MDS (likely stop azacitidine/venetoclax and pursue supportive care/transfusions alone). Medications: Please refer to EMR for complete list. I sent prescriptions for cefdinir 300mg BID and senna/docusate to her pharmacy. Follow Up Plan: 1. Dr Landeros 2. Dr Suarez in the infectious disease clinic on 12/28 Physical Exam: Vitals reviewed, afebrile. Alert and oriented, generalized weakness, rrr, lungs clear, abdomen soft and nt, no leg edema, no rashes.
--- NOTE | 2018-12-21 11:41 | ASMTDCNOTE ---
Case Management Discharge Discharge Order Complete? Answers: Yes Patient to Obtain Answers: via Family Medications Transportation Arranged Answers: Family/Friends Faxed Final Orders Answers: Yes Agency/Facility Transfer Answers: Yes Report Printed & Faxed to Receiving Agency Family Notified Answers: Yes Discharge Comments Notes: CM spoke at length with pt's daughter Analisa Alejo [phone] who had numerous concerns about pt going home with Homecare and palliative care. Analisa says that she wants pt to go to a SNF yet CM provided education that she doesn't qualify based on her needs at this time. PT rec Home Care. Pt is current with [facility] for PT and RN. She has arranged for her PICC line dressings to be changed at Dr. Landeros's office and does not want linkage with a home infusion service. CM provided education about likelihood that pt will need ongoing supportive services at home, if pt's wish is to remain home and at this time any additional services than what [facility] can provide would need to be private pay. CM provided list of various Senior Service organizations in [place], including meals on wheels. Analisa was appreciative of this information. When Analisa came in to the hospital she met with CM and said that she feels pt is "100% better" compared to yesterday and feels comfortable with her going home today. CM informed MD and agrees with dc plan. Pt wants to go home and is appreciative of discharge. CM submit discharge orders through [employer] to [facility] and [facility]. No other CM needs identified at this time. Date Signed: 12/21/2018 11:39 AM Electronically Signed By:ELIZABET Reis
--- NOTE | 2018-12-21 11:47 | ASDISCHSUM ---
Discharge Information Plan Status:Home with Home Health Medically Cleared to Leave:12/21/2018 Discharge Date:12/21/2018 CM D/C Disposition:Home Health Service [facility] D/C Disposition:[id number] Projected Discharge Date:12/21/2018 11:00 AM Transportation at D/C:Family Discharge Delay Reason: Follow-Up Date:12/21/2018 11:00 AM Discharge Slot: Final Diagnosis: Placement Information Referral Type:*Home Health Care Services Referral ID:[id number] Provider Name:[facility] ([facility]) Address 1:[address] [address] Address 2: City:[place] Selection Factors: State:[place] Referral Type:*Hospice Referral ID:[id number] Provider Name: Address 1: Phone Number: Address 2: Fax Number: City: Selection Factors: State: Referral Type:Palliative Care Referral ID:[id number] Provider Name:[facility] Address 1:[address] Phone Number: Address 2: Fax Number: [facility]:[place] Selection Factors: State:[place] Patient Contact Information Contact Name:MARILIA Relationship: Address:[address] Work Phone: City:[place] Alternate Phone: [facility]/Zip Code:[place] [address] Email: Financial Information Financial Class:Medicare Primary Plan Desc:MEDICARE INPATIENT Primary Plan Number:[id number] Secondary Plan Desc:[employer] Secondary Plan Number:[id number] Assessment Information LACE LACE Length of stay for Answers: 7-13 days current admission Acuity / Level of Answers: Yes Care: Did the patient have an inpatient admission? Comorbidities - select Answers: Any tumor (including all that apply lymphoma or leukemia) Chronic pulmonary disease Coronary Artery Disease Other Notes: MDS; HTN; Hypothyroid # of Emergency department Answers: 1-2 visits in the last 6 months Score: 16 Date Signed: 12/18/2018 03:24 PM Electronically Signed By:Rosa Munson [facility] Initial CM Assessment Living Arrangements What is your living Answers: With Spouse arrangement? Who do you live with? Type Of Residence What kind of residence do Answers: House you live in? 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 Patient has myelodysplastic syndrome and pancytopenia and hx of breast cancer. Patient's PCP is Dr. Marcia Hanna. She lives in [place]. No therapies ordered at this time. D/C plan TBD. CM will follow. Date Signed: 12/12/2018 10:05 AM Electronically Signed By:Nelly Silva LCSW [facility] CM Progress Note CM Note CM Note Notes: CM met with pt in her room. Pt and Dr. Ny agree that she will need some HC when she discharges. Pt currently receives [employer] supervisor services for weekly PICC line dressing changes, by NICOLE Richardson with [facility]. She will also need help managing her meds, as well as OT services. CM spoke to Debra, and LM for Yu Carrion at [facility] regarding OT services. Pt uses a walker due to bad knees. She lives at home with her , but he has recently had surgery and is too weak to help very much. Her daughter, Analisa Alejo, sometimes will take pt in her wheelchair for longer commutes. Pt states that she needs someone to clean her house. CM called her daughter Analisa Alejo ([phone]) with pt's permission and discussed. Analisa says they use [facility] already and doesn't need any other referrals. CM will continue to follow. CM D/C plan: Home with continued [facility] RN services, and added OT services Date Signed: 12/13/2018 01:21 PM Electronically Signed By:Leticia Calle.RN [facility] Progress Note CM Note CM Note Notes: Pt states that she feels she may need caregivers when she returns home. CM provided her with a list of agencies to consider. Date Signed: 12/13/2018 04:45 PM Electronically Signed By:Leticia Calle.RN [facility] CM Progress Note CM Note CM Note Notes: In interdisciplinary rounds it was determined by hospitalist that pt would be D/C'd today. Pt has since requested to stay an additional day due to diarrhea and nausea. CM spoke to Yu Carrion at [facility] [phone] to advise pt may be D/C'd today but most likely tomorrow. Pt is current with [facility] for RN and PT services and has been approved for OT services as well when she goes home. Palliative Care met with pt today; pt declined palliative services. CM will continue to follow. CM D/C plan: Home with RN, PT, and OT services from [facility]. Date Signed: 12/15/2018 12:01 PM Electronically Signed By:Leticia Calle.RN [facility] CM Progress Note CM Note CM Note Notes: NICOLE Cabello informed me Pt wanted to discuss Palliative vs Hospice care. This CM and Serina ([place]) met with Pt, Son and to answer questions. Hospice and Palliative were explained and Pt/family open to meeting with [facility]alliative Service on Tuesday. Serina to update [facility]. /daughter would like to be called ( Analisa ) in the morning with a time, so both can attend the meeting. Analisa will drive her father to the hospital. Pt would like her care at home to be provided by one agency rather then several different ones. CM available if more needs arise. Plan: Pt will likely discharge home with [facility] or Hospice/Palliative Care Date Signed: 12/17/2018 02:08 PM Electronically Signed By:Ayaka Cosme.LARA RIVERA [facility] Progress Note CM Note CM Note Notes: CM met with Pt and family to let them know [facility] would meet today but instead [facility] set a time for tomorrow at 1030 with xenia Raman Analisa and Davey so everyone could be present. Referral sent to [facility]. CM available for needs. PLAN:TBD Date Signed: 12/18/2018 05:35 PM Electronically Signed By:Ayaka Cosme.LARA RIVERA [facility] CM Progress Note CM Note CM Note Notes: Na palliative care meet with Pt and family and they have decided to go home with [facility] Palliative care. This CM Met with Pt in the afternoon and Pt was having a great day. Refurrals for bot Na and [facility] placed but Pt informed me she did not want [facility]. Pt will continue on Antibiotics and is eating more. CM Available for needs PLAN: Home with Na Jose Ramon and [facility] infusion team. Date Signed: 12/19/2018 03:56 PM Electronically Signed By:Ayaka Cosme.NICOLE,[facility] CM Progress Note CM Note CM Note Notes: Pt to discharge tomorrow with [facility] PT only. CM spoke with pt and with Yu from [facility]. Pt was admitted with PICC line and per pt this is for lab access at [facility] because PIVs fail on her. Pt is on oral chemo per pt. Yu from [facility] was to investigate this with pt's former RN and report back to [facility] CM. Pt states that the dressings that [facility] provided in the past make her skin irritated and she would rather have dressing changes performed by [facility] instead of home RN. Dr. Landeros's RN Sandra confirmed that this was fine with [facility]. Pt expressed dissatisfaction with previous PT that visited her from [facility] and she would like a different PT if she were to stay with [facility]. CM communicated this to Yu and Yu will investigate and provide a different PT. CM to follow. D/C Plan: [facility] PT Date Signed: 12/20/2018 05:02 PM Electronically Signed By:Bre Moore. NICOLE [facility] CM Progress Note CM Note CM Note Notes: ADDENDUM: Pt also signed on to [facility]iative [facility] and referral was started. Date Signed: 12/20/2018 05:03 PM Electronically Signed By:Bre Moore. NICOLE Case Management Discharge Plan Note Case Management Discharge Discharge Order Complete? Answers: Yes Patient to Obtain Answers: via Family Medications Transportation Arranged Answers: Family/Friends Faxed Final Orders Answers: Yes Agency/Facility Transfer Answers: Yes Report Printed & Faxed to Receiving Agency Family Notified Answers: Yes Discharge Comments Notes: DONNA spoke at length with pt's daughter Analisa Alejo [phone] who had numerous concerns about pt going home with Homecare and palliative care. Analisa says that she wants pt to go to a SNF yet CM provided education that she doesn't qualify based on her needs at this time. PT rec Home Care. Pt is current with [facility] for PT and RN. She has arranged for her PICC line dressings to be changed at Dr. Landeros's office and does not want linkage with a home infusion service. CM provided education about likelihood that pt will need ongoing supportive services at home, if pt's wish is to remain home and at this time any additional services than what [facility] can provide would need to be private pay. CM provided list of various Senior Service organizations in [place], including meals on wheels. Analisa was appreciative of this information. When Analisa came in to the hospital she met with CM and said that she feels pt is "100% better" compared to yesterday and feels comfortable with her going home today. CM informed MD and agrees with dc plan. Pt wants to go home and is appreciative of discharge. CM submit discharge orders through [employer] to [facility] and [facility]. No other CM needs identified at this time. Date Signed: 12/21/2018 11:39 AM Electronically Signed By:ELIZABET Reis Intervention Information Intervention Type:*BOLTON-Signed Date of Service:12/12/2018 02:04 PM Patient Type:Observation Staff Member:Rosa Munson Hours: Discipline: Severity: Comment: Intervention Type:*IM-Signed Date of Service:12/15/2018 02:45 PM Patient Type:Inpatient Staff Member:Rosa Munson Hours: Discipline: Severity: Comment: Intervention Type:*IM-Signed Date of Service:12/21/2018 11:21 AM Patient Type:Inpatient Staff Member:Rosa Munson Hours: Discipline: Severity: Comment:
== END 2018-12-21 12:05 | disposition home health service (06) | DRG 809 ==
LOC: F1N 09:55 → OBSVTOIN 12-12 18:25
PROVIDERS: ADMIT Internal Medicine; ATTEND Internal Medicine
PROC: 30243N1 Transfusion of Nonautologous Red Blood Cells into Central Vein, Percutaneous Approach (ICD-10-PCS; principal; 2018-12-11)
DX: D70.9 Neutropenia, unspecified (principal); K61.1 Rectal abscess; D46.20 Refractory anemia with excess of blasts, unspecified; D61.810 Antineoplastic chemotherapy induced pancytopenia; E86.0 Dehydration; K59.03 Drug induced constipation; M53.3 Sacrococcygeal disorders, not elsewhere classified; R19.7 Diarrhea, unspecified; N63.21 Unspecified lump in the left breast, upper outer quadrant; I10 Essential (primary) hypertension; I25.10 Atherosclerotic heart disease of native coronary artery without angina pectoris; J47.9 Bronchiectasis, uncomplicated; J44.9 Chronic obstructive pulmonary disease, unspecified; I34.0 Nonrheumatic mitral (valve) insufficiency; M10.9 Gout, unspecified; E03.9 Hypothyroidism, unspecified; Z85.3 Personal history of malignant neoplasm of breast; Z86.718 Personal history of other venous thrombosis and embolism; Z79.899 Other long term (current) drug therapy; Z51.5 Encounter for palliative care; Z66 Do not resuscitate
CPT/HCPCS: 86850-90; 86870-90; 86905-90; 86922-90; 97116-GP; 97162-GP; 97530-GP; 99001-90; G0378; J0692; J0885; J2185; J2405; J2997; J3370; P9016; P9021

== ENCOUNTER 2019-01-05 09:06 | Outpatient (CLI) | payer OTHER | END 2019-01-05 12:31 | disposition home or self-care (01) | LOC: FOBOP 09:06 ==

== ENCOUNTER 2019-01-19 09:17 | Outpatient (CLI) | payer OTHER | END 2019-01-19 13:19 | disposition home or self-care (01) | LOC: FOBOP 09:17 ==